=== PATIENT | female | born 1965 | race Caucasian/White ===

== ENCOUNTER 2020-04-07 13:04 | Inpatient (IN) | payer MEDICAID ==
[~2020-04-07] VITALS: Ht 154.9 cm; Wt 97.8 kg
--- NOTE | 2020-04-07 13:29 | NUR ---
PT TO ROOM VIA WHEELCHAIR.
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
--- NOTE | 2020-04-07 14:33 | NUR ---
PT BEING TAKEN TO IMAGING.
[2020-04-07 14:34] LABS: MEAN CORPUSCULAR HEMOGLOBIN 38.2 pg (27.0-34.8); MEAN CORPUSCULAR VOLUME 119.3 fL (80-100); MEAN PLATELET VOLUME 9.2 fL (7.4-10.4); PLATELET COUNT 237 x10^3/uL (130-400); RED BLOOD COUNT 3.42 x10^6/uL (3.82-5.3); RED CELL DISTRIBUTION WIDTH 19.4 % (9.6-15.2)
[2020-04-07 14:46] LABS: ALBUMIN 1.9 g/dL (3.4-5.0); ANION GAP 12 mmol/L (5-15); CALCIUM 8.4 mg/dL (8.5-10.1); CHLORIDE 93 mmol/L (98-107)
[2020-04-07 14:51] LABS: ALANINE AMINOTRANSFERASE 109 U/L (12-78); ALKALINE PHOSPHATASE 324 U/L (45-117); BILIRUBIN,TOTAL 4.3 mg/dL (0.2-1.0); CREATININE 4.96 mg/dL (0.55-1.02); TOTAL PROTEIN 6.9 g/dL (6.4-8.2)
[2020-04-07 15:15] LABS: BASOPHILS # (AUTO) 0.08 x10^3/uL (0-0.1); BASOPHILS % (AUTO) 1 % (0-1); EOSINOPHILS # (AUTO) 0.04 x10^3/uL (0-0.4); EOSINOPHILS % (AUTO) 0 % (1-7); LYMPHOCYTES # (AUTO) 1.12 x10^3/uL (1-3.4); LYMPHOCYTES % (AUTO) 7 % (22-44); MD SCAN; MONOCYTES # (AUTO) 2.09 x10^3/uL (0.2-0.8); MONOCYTES % (AUTO) 13 % (2-9); NEUTROPHILS # (AUTO) 13.45 x10^3/uL (1.8-6.8); NEUTROPHILS % (AUTO) 80 % (42-75)
--- NOTE | 2020-04-07 15:33 | NUR ---
PT BACK FROM IMAGING.
[2020-04-07] MEDS ORDERED: METH40TA3 PO (15:35)
--- NOTE | 2020-04-07 15:35 | NUR ---
PT RESTING ON GUCRISTINE. EDWARDN. UA SENT TO LAB. NO OTHER NEEDS REQUESTED AT THIS TIME. VSS
[2020-04-07 16:05] LABS: MICROSCOPIC INDICATED
[2020-04-07] MEDS ORDERED: CEFTRIAXONE PMX 1GM/50ML 50 ML IV ONE (17:00)
[2020-04-07] MEDS ORDERED: CEFTRIAXONE PMX 1GM/50ML 50 ML ONE (17:11)
--- NOTE | 2020-04-07 17:48 | NUR ---
LATE ENTRY FOR 1635 PT RESTING JENNY DANIEL. NO NEEDS REQUESTED AT THIS TIME.
--- NOTE | 2020-04-07 17:49 | NUR ---
US GUIDED IV IN PROGRESS. PIV ATTEMPTS UNSUCCESSFUL
[2020-04-07] MEDS ORDERED: POTASSIUM CHLORIDE 20 MEQ TAB.ER.PRT PO ONE (18:00)
[2020-04-07] MEDS ORDERED: POTASSIUM CHLORIDE 20 MEQ TAB.ER.PRT ONE (18:16)
--- NOTE | 2020-04-07 18:32 | NUR ---
REPORT TO UGO CARPENTER. ALL QUESTIONS ANSWERED
[2020-04-07 18:56] LABS: INTERNATIONAL NORMALIZED RATIO 1.26 (0.93-1.1)
[2020-04-07] MEDS ORDERED: ONDANSETRON 2MG/ML, 2ML IVPush PRN (19:00)
[2020-04-07] MEDS ORDERED: POLYETHYLENE GLYCOL 17 GM PACKET PO PRN (19:00)
[2020-04-07] MEDS ORDERED: BISACODYL 10 MG SUPP PR PRN (19:00)
[2020-04-07] MEDS ORDERED: DOCUSATE 100 MG CAPSULE PO PRN (19:00)
[2020-04-07 20:04] VITALS: BP 98/62
[2020-04-07] MEDS: ALBUMIN HUMAN 25% 100 ML IV SCH (20:20)
[2020-04-07] MEDS: FUROSEMIDE 20 MG/2 ML IV SCH (23:18)
[2020-04-08] MEDS: ACETAMINOPHEN 325 MG TABLET PO PRN (00:14)
[2020-04-08 00:18] VITALS: BP 94/59
[2020-04-08 06:45] LABS: MEAN CORPUSCULAR HEMOGLOBIN 38.8 pg (27.0-34.8); MEAN CORPUSCULAR HGB CONC 32.7 g/dL (32.4-35.8); MEAN CORPUSCULAR VOLUME 118.8 fL (80-100); MEAN PLATELET VOLUME 9.1 fL (7.4-10.4); PLATELET COUNT 156 x10^3/uL (130-400); RED BLOOD COUNT 3.26 x10^6/uL (3.82-5.3); RED CELL DISTRIBUTION WIDTH 19.4 % (9.6-15.2)
[2020-04-08 06:57] LABS: ALANINE AMINOTRANSFERASE 96 U/L (12-78); ALBUMIN 2.2 g/dL (3.4-5.0); ANION GAP 11 mmol/L (5-15); CALCIUM 8.1 mg/dL (8.5-10.1); CHLORIDE 95 mmol/L (98-107)
[2020-04-08 07:06] LABS: ALKALINE PHOSPHATASE 283 U/L (45-117); BILIRUBIN,TOTAL 4.3 mg/dL (0.2-1.0); CREATININE 4.82 mg/dL (0.55-1.02); TOTAL PROTEIN 6.9 g/dL (6.4-8.2)
[2020-04-08 07:29] LABS: BASOPHILS # (AUTO) 0.07 x10^3/uL (0-0.1); BASOPHILS % (AUTO) 1 % (0-1); EOSINOPHILS # (AUTO) 0.21 x10^3/uL (0-0.4); EOSINOPHILS % (AUTO) 2 % (1-7); LYMPHOCYTES # (AUTO) 1.85 x10^3/uL (1-3.4); LYMPHOCYTES % (AUTO) 16 % (22-44); MD SCAN; MONOCYTES # (AUTO) 1.15 x10^3/uL (0.2-0.8); MONOCYTES % (AUTO) 10 % (2-9); NEUTROPHILS # (AUTO) 8.54 x10^3/uL (1.8-6.8); NEUTROPHILS % (AUTO) 72 % (42-75)
[2020-04-08] MEDS: ALBUMIN HUMAN 25% 100 ML IV SCH ×2 (08:30→16:30)
[2020-04-08] MEDS: METHADONE 40 MG TABLET.SOL PO SCH (08:51)
[2020-04-08 08:57] VITALS: BP 100/66
[2020-04-08] MEDS: FUROSEMIDE 20 MG/2 ML IV SCH ×2 (09:00→18:29)
[2020-04-08 10:16] LABS: FREE T4 (FREE THYROXINE) 1.34 ng/dL (0.76-1.46)
[2020-04-08 14:17] VITALS: BP 93/68
[2020-04-08] MEDS: LIOTHYRONINE 5 MCG TABLET PO SCH (14:35)
[2020-04-08] MEDS: GABAPENTIN 300 MG CAPSULE PO SCH ×2 (16:00→22:53)
[2020-04-08] MEDS ORDERED: FUROSEMIDE 40 MG/4 ML ONE (18:14)
[2020-04-08 18:51] VITALS: BP 106/61
[2020-04-08] MEDS ORDERED: LORazepam 2 MG/ML, 1ML IV PRN ×5 (19:00)
[2020-04-08] MEDS: CEFTRIAXONE PMX 1GM/50ML 50 ML IV SCH (19:43)
[2020-04-09 00:09] VITALS: BP 134/75
[2020-04-09] MEDS: LIOTHYRONINE 5 MCG TABLET PO SCH (05:51)
[2020-04-09 05:52] LABS: MEAN CORPUSCULAR HEMOGLOBIN 39.1 pg (27.0-34.8); MEAN CORPUSCULAR HGB CONC 32.9 g/dL (32.4-35.8); MEAN CORPUSCULAR VOLUME 118.8 fL (80-100); MEAN PLATELET VOLUME 9.5 fL (7.4-10.4); PLATELET COUNT 205 x10^3/uL (130-400); RED CELL DISTRIBUTION WIDTH 20.1 % (9.6-15.2)
[2020-04-09 06:03] LABS: ANION GAP 10 mmol/L (5-15); CALCIUM 8.6 mg/dL (8.5-10.1); CHLORIDE 93 mmol/L (98-107); CREATININE 4.57 mg/dL (0.55-1.02)
[2020-04-09 06:05] LABS: MD YES
[2020-04-09 06:09] LABS: ANISOCYTOSIS 1+; BAND#(MANUAL) 0.13 x10^3/uL; BANDS%(MANUAL) 1 % (0-7); LYMPH#(MANUAL) 2.13 x10^3/uL (1-3.4); LYMPHS% (MANUAL) 16 % (22-44); MONOS#(MANUAL) 0.93 x10^3/uL (0.3-2.7); MONOS% (MANUAL) 7 % (2-9); NRBC % (MANUAL) 1 % (0-1); POLYCHROMASIA 1+; SEG#(MANUAL) 10.11 x10^3/uL (1.8-6.8); SEGS% (MANUAL) 76 % (42-75); TARGET CELLS 1+
[2020-04-09 06:10] LABS: TEAR DROPS 1+
[2020-04-09 06:11] LABS: <PLATELET ESTIMATE> ADEQUATE; <PLT MORPHOLOGY> NORMAL PLT MORPH
[2020-04-09 06:32] VITALS: BP 110/73
[2020-04-09] MEDS ORDERED: FUROSEMIDE 20 MG/2 ML IV SCH (07:30)
[2020-04-09] MEDS ORDERED: LIOTHYRONINE 5 MCG TABLET PO SCH (09:00)
[2020-04-09] MEDS: GABAPENTIN 300 MG CAPSULE PO SCH ×3 (09:00→20:58)
[2020-04-09] MEDS: METHADONE 40 MG TABLET.SOL PO SCH (09:19)
[2020-04-09] MEDS: FUROSEMIDE 20 MG/2 ML IV SCH ×2 (09:21→20:57)
[2020-04-09] MEDS: ALBUMIN HUMAN 25% 100 ML IV SCH (09:34)
[2020-04-09 12:47] VITALS: BP 107/76
[2020-04-09] MEDS: CEFTRIAXONE PMX 1GM/50ML 50 ML IV SCH (18:00)
[2020-04-09 20:08] VITALS: BP 123/84
[2020-04-10 01:58] VITALS: BP 131/86
[2020-04-10 04:54] LABS: MEAN CORPUSCULAR HEMOGLOBIN 38.4 pg (27.0-34.8); MEAN CORPUSCULAR HGB CONC 32.3 g/dL (32.4-35.8); MEAN CORPUSCULAR VOLUME 118.8 fL (80-100); MEAN PLATELET VOLUME 8.8 fL (7.4-10.4); PLATELET COUNT 206 x10^3/uL (130-400); RED BLOOD COUNT 3.32 x10^6/uL (3.82-5.3); RED CELL DISTRIBUTION WIDTH 19.4 % (9.6-15.2)
[2020-04-10 04:58] LABS: ALBUMIN 2.9 g/dL (3.4-5.0); ANION GAP 9 mmol/L (5-15); CALCIUM 8.7 mg/dL (8.5-10.1); CHLORIDE 95 mmol/L (98-107)
[2020-04-10] MEDS: LIOTHYRONINE 5 MCG TABLET PO SCH (05:27)
[2020-04-10 05:53] LABS: BASOPHILS # (AUTO) 0.05 x10^3/uL (0-0.1); BASOPHILS % (AUTO) 0 % (0-1); EOSINOPHILS # (AUTO) 0.08 x10^3/uL (0-0.4); EOSINOPHILS % (AUTO) 1 % (1-7); LYMPHOCYTES # (AUTO) 1.76 x10^3/uL (1-3.4); LYMPHOCYTES % (AUTO) 12 % (22-44); MD SCAN; MONOCYTES # (AUTO) 1.68 x10^3/uL (0.2-0.8); MONOCYTES % (AUTO) 11 % (2-9); NEUTROPHILS # (AUTO) 11.37 x10^3/uL (1.8-6.8); NEUTROPHILS % (AUTO) 76 % (42-75)
[2020-04-10 07:24] VITALS: BP 126/86
[2020-04-10] MEDS: GABAPENTIN 300 MG CAPSULE PO SCH (07:45)
[2020-04-10] MEDS: METHADONE 40 MG TABLET.SOL PO SCH (07:45)
[2020-04-10] MEDS: FUROSEMIDE 20 MG/2 ML IV SCH (09:49)
[2020-04-10] MEDS: POTASSIUM CHLORIDE 20 MEQ in SODIUM CHLORIDE 0.9% 250 ML IV SCH ×2 (11:34→23:55)
[2020-04-10 12:59] VITALS: BP 125/89
[2020-04-10] MEDS ORDERED: LIDOCAINE 1%, 10ML ONE (15:56)
[2020-04-10] MEDS: FUROSEMIDE 80 MG TABLET PO SCH (17:42)
[2020-04-10] MEDS: GABAPENTIN 100 MG CAPSULE PO SCH ×2 (17:43→21:00)
[2020-04-10] MEDS: CEFTRIAXONE PMX 1GM/50ML 50 ML IV SCH (18:03)
[2020-04-10 18:59] VITALS: BP 132/79
[2020-04-10] MEDS: POTASSIUM CHLORIDE 20 MEQ TAB.ER.PRT PO SCH (21:00)
[2020-04-11 00:22] VITALS: BP 111/76
[2020-04-11 07:02] LABS: MEAN CORPUSCULAR HEMOGLOBIN 39.7 pg (27.0-34.8); MEAN CORPUSCULAR HGB CONC 33.6 g/dL (32.4-35.8); MEAN CORPUSCULAR VOLUME 118.1 fL (80-100); MEAN PLATELET VOLUME 9.2 fL (7.4-10.4); PLATELET COUNT 182 x10^3/uL (130-400); RED BLOOD COUNT 3.45 x10^6/uL (3.82-5.3); RED CELL DISTRIBUTION WIDTH 19.8 % (9.6-15.2)
[2020-04-11 07:04] LABS: HEMOGRAM NOTE RECHECKED
[2020-04-11 07:09] LABS: ALBUMIN 2.6 g/dL (3.4-5.0); ANION GAP 8 mmol/L (5-15); CHLORIDE 100 mmol/L (98-107)
[2020-04-11 07:41] LABS: BASOPHILS # (AUTO) 0.06 x10^3/uL (0-0.1); BASOPHILS % (AUTO) 0 % (0-1); EOSINOPHILS # (AUTO) 0.21 x10^3/uL (0-0.4); EOSINOPHILS % (AUTO) 1 % (1-7); LYMPHOCYTES # (AUTO) 1.77 x10^3/uL (1-3.4); LYMPHOCYTES % (AUTO) 9 % (22-44); MD MORPH REVIEW ONLY; MONOCYTES # (AUTO) 1.71 x10^3/uL (0.2-0.8); MONOCYTES % (AUTO) 8 % (2-9); NEUTROPHILS # (AUTO) 16.52 x10^3/uL (1.8-6.8); NEUTROPHILS % (AUTO) 82 % (42-75)
[2020-04-11 07:48] LABS: <PLATELET ESTIMATE> ADEQUATE; <PLT MORPHOLOGY> NORMAL PLT MORPH; ANISOCYTOSIS 1+; POLYCHROMASIA 1+; TARGET CELLS 1+
[2020-04-11] MEDS: LIOTHYRONINE 5 MCG TABLET PO SCH (07:53)
[2020-04-11] MEDS: FUROSEMIDE 80 MG TABLET PO SCH ×2 (07:53→16:08)
[2020-04-11] MEDS: GABAPENTIN 100 MG CAPSULE PO SCH (08:11)
[2020-04-11] MEDS: POTASSIUM CHLORIDE 20 MEQ TAB.ER.PRT PO SCH ×3 (08:11→22:56)
[2020-04-11] MEDS: METHADONE 40 MG TABLET.SOL PO SCH (08:12)
[2020-04-11 08:44] VITALS: BP 119/70
[2020-04-11] MEDS: POTASSIUM CHLORIDE 20 MEQ in SODIUM CHLORIDE 0.9% 250 ML IV SCH ×2 (09:12→21:46)
[2020-04-11] MEDS: LACTULOSE 20 GM/30 ML UDC PO SCH ×3 (11:00→21:46)
[2020-04-11 14:14] VITALS: BP 105/70
[2020-04-11] MEDS: CEFTRIAXONE PMX 1GM/50ML 50 ML IV SCH (17:40)
[2020-04-11 18:45] VITALS: BP 130/82
[2020-04-12 00:51] VITALS: BP 120/87
[2020-04-12] MEDS: LIOTHYRONINE 5 MCG TABLET PO SCH (06:25)
[2020-04-12] MEDS: LACTULOSE 20 GM/30 ML UDC PO SCH ×4 (06:25→21:00)
[2020-04-12 06:45] VITALS: BP 112/73
[2020-04-12 08:18] LABS: MEAN CORPUSCULAR HEMOGLOBIN 38.6 pg (27.0-34.8); MEAN CORPUSCULAR HGB CONC 32.1 g/dL (32.4-35.8); MEAN CORPUSCULAR VOLUME 120.4 fL (80-100); MEAN PLATELET VOLUME 8.7 fL (7.4-10.4); PLATELET COUNT 193 x10^3/uL (130-400); RED BLOOD COUNT 3.18 x10^6/uL (3.82-5.3); RED CELL DISTRIBUTION WIDTH 19.5 % (9.6-15.2)
[2020-04-12 08:28] LABS: ALBUMIN 2.4 g/dL (3.4-5.0); ANION GAP 6 mmol/L (5-15); CALCIUM 9.2 mg/dL (8.5-10.1); CHLORIDE 106 mmol/L (98-107)
[2020-04-12 08:32] LABS: ALANINE AMINOTRANSFERASE 62 U/L (12-78); ALKALINE PHOSPHATASE 204 U/L (45-117); BILIRUBIN,TOTAL 4.7 mg/dL (0.2-1.0); CREATININE 2.31 mg/dL (0.55-1.02); TOTAL PROTEIN 6.7 g/dL (6.4-8.2)
[2020-04-12] MEDS: POTASSIUM CHLORIDE 20 MEQ TAB.ER.PRT PO SCH ×2 (08:36→21:03)
[2020-04-12] MEDS: METHADONE 40 MG TABLET.SOL PO SCH (08:36)
[2020-04-12] MEDS: FUROSEMIDE 80 MG TABLET PO SCH ×2 (08:36→17:24)
[2020-04-12 08:53] LABS: MD YES
[2020-04-12 08:55] LABS: ANISOCYTOSIS 1+; BAND#(MANUAL) 0.33 x10^3/uL; BANDS%(MANUAL) 2 % (0-7); BASOS#(MANUAL) 0.16 x10^3/uL (0-0.1); BASOS% (MANUAL) 1 % (0-1); LYMPH#(MANUAL) 0.49 x10^3/uL (1-3.4); LYMPHS% (MANUAL) 3 % (22-44); METAMYELOCYTES# (MANUAL) 0.33 x10^3/uL (0-0); METAMYELOCYTES% (MANUAL) 2 % (0-1); MONOS% (MANUAL) 11 % (2-9); SEG#(MANUAL) 13.28 x10^3/uL (1.8-6.8); SEGS% (MANUAL) 81 % (42-75)
[2020-04-12 08:56] LABS: <PLATELET ESTIMATE> ADEQUATE; <PLT MORPHOLOGY> NORMAL PLT MORPH; POLYCHROMASIA 1+; TARGET CELLS 1+
[2020-04-12 13:00] VITALS: BP 95/66
[2020-04-12] MEDS: CEFTRIAXONE PMX 1GM/50ML 50 ML IV SCH (18:21)
[2020-04-12 19:09] VITALS: BP 123/79
[2020-04-13 01:41] VITALS: BP 121/59
[2020-04-13] MEDS: LIOTHYRONINE 5 MCG TABLET PO SCH (06:03)
[2020-04-13 06:06] LABS: MEAN CORPUSCULAR HEMOGLOBIN 39.2 pg (27.0-34.8); MEAN CORPUSCULAR HGB CONC 32.7 g/dL (32.4-35.8); MEAN CORPUSCULAR VOLUME 119.9 fL (80-100); MEAN PLATELET VOLUME 9.1 fL (7.4-10.4); PLATELET COUNT 205 x10^3/uL (130-400); RED BLOOD COUNT 3.08 x10^6/uL (3.82-5.3); RED CELL DISTRIBUTION WIDTH 18.7 % (9.6-15.2)
[2020-04-13] MEDS: LACTULOSE 20 GM/30 ML UDC PO SCH ×4 (06:06→23:19)
[2020-04-13 06:14] LABS: ALANINE AMINOTRANSFERASE 64 U/L (12-78); ALBUMIN 2.3 g/dL (3.4-5.0); ANION GAP 7 mmol/L (5-15); CALCIUM 8.8 mg/dL (8.5-10.1); CHLORIDE 104 mmol/L (98-107); CREATININE 2.06 mg/dL (0.55-1.02)
[2020-04-13 06:16] LABS: ALKALINE PHOSPHATASE 192 U/L (45-117); TOTAL PROTEIN 6.6 g/dL (6.4-8.2)
[2020-04-13 06:34] LABS: MD YES
[2020-04-13 06:36] LABS: BAND#(MANUAL) 0.58 x10^3/uL; BANDS%(MANUAL) 4 % (0-7); LYMPH#(MANUAL) 1.17 x10^3/uL (1-3.4); LYMPHS% (MANUAL) 8 % (22-44); METAMYELOCYTES# (MANUAL) 0.15 x10^3/uL (0-0); METAMYELOCYTES% (MANUAL) 1 % (0-1); MONOS#(MANUAL) 1.17 x10^3/uL (0.3-2.7); MONOS% (MANUAL) 8 % (2-9); SEG#(MANUAL) 11.53 x10^3/uL (1.8-6.8); SEGS% (MANUAL) 79 % (42-75)
[2020-04-13 06:37] LABS: <PLATELET ESTIMATE> ADEQUATE; <PLT MORPHOLOGY> NORMAL PLT MORPH; ANISOCYTOSIS 1+; TARGET CELLS 1+
[2020-04-13 07:28] VITALS: BP 106/64
[2020-04-13] MEDS: METHADONE 40 MG TABLET.SOL PO SCH (09:00)
[2020-04-13] MEDS: FUROSEMIDE 80 MG TABLET PO SCH (09:32)
[2020-04-13] MEDS: POTASSIUM CHLORIDE 20 MEQ TAB.ER.PRT PO SCH (09:32)
[2020-04-13] MEDS: RIFAXIMIN 550 MG TABLET PO SCH (14:07)
[2020-04-13 14:13] VITALS: BP 115/78
[2020-04-13] MEDS: ALBUMIN HUMAN 25% 100 ML IV SCH (16:48)
[2020-04-13 20:17] VITALS: BP 105/73
[2020-04-14 01:00] VITALS: BP 123/74
[2020-04-14] MEDS: ALBUMIN HUMAN 25% 100 ML IV SCH ×2 (02:26→11:29)
[2020-04-14] MEDS: RIFAXIMIN 550 MG TABLET PO SCH ×3 (02:28→21:07)
[2020-04-14] MEDS: CEFTRIAXONE PMX 1GM/50ML 50 ML IV SCH (03:22)
[2020-04-14 06:16] VITALS: BP 111/70
[2020-04-14] MEDS: LIOTHYRONINE 5 MCG TABLET PO SCH (06:17)
[2020-04-14] MEDS: LACTULOSE 20 GM/30 ML UDC PO SCH ×4 (06:17→20:58)
[2020-04-14] MEDS: ACETAMINOPHEN 325 MG TABLET PO PRN ×2 (08:31→18:08)
[2020-04-14] MEDS: METHADONE 40 MG TABLET.SOL PO SCH (08:31)
[2020-04-14 08:59] LABS: MEAN CORPUSCULAR HEMOGLOBIN 38.9 pg (27.0-34.8); MEAN CORPUSCULAR HGB CONC 32.2 g/dL (32.4-35.8); MEAN PLATELET VOLUME 8.9 fL (7.4-10.4); PLATELET COUNT 194 x10^3/uL (130-400); RED BLOOD COUNT 3.02 x10^6/uL (3.82-5.3); RED CELL DISTRIBUTION WIDTH 18.8 % (9.6-15.2)
[2020-04-14] MEDS ORDERED: OXYcodone IR 5MG TABLET PO PRN (09:00)
[2020-04-14 09:09] LABS: ALBUMIN 2.8 g/dL (3.4-5.0); ANION GAP 4 mmol/L (5-15); CALCIUM 9.4 mg/dL (8.5-10.1); CHLORIDE 103 mmol/L (98-107)
[2020-04-14 09:13] LABS: ALANINE AMINOTRANSFERASE 69 U/L (12-78); ALKALINE PHOSPHATASE 191 U/L (45-117); BILIRUBIN,TOTAL 4.6 mg/dL (0.2-1.0); CREATININE 1.72 mg/dL (0.55-1.02)
[2020-04-14 09:14] LABS: MD YES
[2020-04-14 09:16] LABS: BAND#(MANUAL) 0.11 x10^3/uL; BANDS%(MANUAL) 1 % (0-7); BASOS#(MANUAL) 0.22 x10^3/uL (0-0.1); BASOS% (MANUAL) 2 % (0-1); EOS#(MANUAL) 0.22 x10^3/uL (0.0-0.4); EOS% (MANUAL) 2 % (1-7); LYMPH#(MANUAL) 1.87 x10^3/uL (1-3.4); LYMPHS% (MANUAL) 17 % (22-44); MONOS#(MANUAL) 0.55 x10^3/uL (0.3-2.7); MONOS% (MANUAL) 5 % (2-9); MYELOCYTES# (MANUAL) 0.22 x10^3/uL (0-0); MYELOCYTES% (MANUAL) 2 % (0-0); NRBC % (MANUAL) 1 % (0-1); SEG#(MANUAL) 7.81 x10^3/uL (1.8-6.8); SEGS% (MANUAL) 71 % (42-75)
[2020-04-14 09:17] LABS: ANISOCYTOSIS 1+; POLYCHROMASIA 1+; TARGET CELLS 1+
[2020-04-14 09:18] LABS: <PLATELET ESTIMATE> ADEQUATE; <PLT MORPHOLOGY> NORMAL PLT MORPH
[2020-04-14] MEDS: HEPARIN 5,000 UNITS/ML, 1ML SQ SCH (11:29)
[2020-04-14 13:40] VITALS: BP 101/61
[2020-04-14 18:54] VITALS: BP 145/87
[2020-04-14 19:09] VITALS: BP 105/72
[2020-04-15] MEDS: HEPARIN 5,000 UNITS/ML, 1ML SQ SCH ×3 (00:07→22:09)
[2020-04-15 02:12] VITALS: BP 107/68
[2020-04-15] MEDS: CEFTRIAXONE PMX 1GM/50ML 50 ML IV SCH (04:46)
[2020-04-15] MEDS: ACETAMINOPHEN 325 MG TABLET PO PRN ×3 (04:48→22:09)
[2020-04-15 05:21] LABS: MEAN CORPUSCULAR HEMOGLOBIN 39.1 pg (27.0-34.8); MEAN CORPUSCULAR HGB CONC 32.8 g/dL (32.4-35.8); MEAN CORPUSCULAR VOLUME 119.2 fL (80-100); MEAN PLATELET VOLUME 9.5 fL (7.4-10.4); PLATELET COUNT 170 x10^3/uL (130-400); RED BLOOD COUNT 2.82 x10^6/uL (3.82-5.3); RED CELL DISTRIBUTION WIDTH 18.3 % (9.6-15.2)
[2020-04-15 05:24] LABS: CHLORIDE 104 mmol/L (98-107)
[2020-04-15 05:32] LABS: ALANINE AMINOTRANSFERASE 62 U/L (12-78); ALBUMIN 2.4 g/dL (3.4-5.0); ALKALINE PHOSPHATASE 168 U/L (45-117); ANION GAP 8 mmol/L (5-15); BILIRUBIN,TOTAL 3.6 mg/dL (0.2-1.0); CALCIUM 8.3 mg/dL (8.5-10.1); TOTAL PROTEIN 6.2 g/dL (6.4-8.2)
[2020-04-15] MEDS: LACTULOSE 20 GM/30 ML UDC PO SCH (06:15)
[2020-04-15] MEDS: LIOTHYRONINE 5 MCG TABLET PO SCH (06:15)
[2020-04-15 06:16] LABS: MD YES
[2020-04-15 06:19] LABS: ANISOCYTOSIS 1+; BAND#(MANUAL) 1.06 x10^3/uL; BANDS%(MANUAL) 9 % (0-7); BASOS#(MANUAL) 0.24 x10^3/uL (0-0.1); BASOS% (MANUAL) 2 % (0-1); EOS#(MANUAL) 0.12 x10^3/uL (0.0-0.4); EOS% (MANUAL) 1 % (1-7); LYMPH#(MANUAL) 1.77 x10^3/uL (1-3.4); LYMPHS% (MANUAL) 15 % (22-44); METAMYELOCYTES# (MANUAL) 0.12 x10^3/uL (0-0); METAMYELOCYTES% (MANUAL) 1 % (0-1); MONOS#(MANUAL) 1.65 x10^3/uL (0.3-2.7); MONOS% (MANUAL) 14 % (2-9); SEG#(MANUAL) 6.84 x10^3/uL (1.8-6.8); SEGS% (MANUAL) 58 % (42-75)
[2020-04-15 06:20] LABS: <PLATELET ESTIMATE> ADEQUATE; <PLT MORPHOLOGY> NORMAL PLT MORPH; TARGET CELLS 1+
[2020-04-15 07:50] VITALS: BP 101/64
[2020-04-15] MEDS ORDERED: LACTULOSE 20 GM/30 ML UDC PO PRN (08:00)
[2020-04-15] MEDS: METHADONE 40 MG TABLET.SOL PO SCH (09:00)
[2020-04-15] MEDS: RIFAXIMIN 550 MG TABLET PO SCH ×2 (09:56→22:09)
[2020-04-15 13:32] VITALS: BP 106/65
[2020-04-15 19:29] VITALS: BP 108/65
[2020-04-16 01:14] VITALS: BP 103/69
[2020-04-16 05:41] VITALS: BP 110/66
[2020-04-16] MEDS: LIOTHYRONINE 5 MCG TABLET PO SCH (05:44)
[2020-04-16 07:19] LABS: MEAN CORPUSCULAR HEMOGLOBIN 38.6 pg (27.0-34.8); MEAN CORPUSCULAR HGB CONC 31.9 g/dL (32.4-35.8); MEAN PLATELET VOLUME 8.6 fL (7.4-10.4); PLATELET COUNT 186 x10^3/uL (130-400); RED BLOOD COUNT 3.07 x10^6/uL (3.82-5.3); RED CELL DISTRIBUTION WIDTH 18.6 % (9.6-15.2)
[2020-04-16 07:31] LABS: ALBUMIN 2.6 g/dL (3.4-5.0); ANION GAP 6 mmol/L (5-15); CALCIUM 8.7 mg/dL (8.5-10.1); CHLORIDE 104 mmol/L (98-107)
[2020-04-16 07:35] LABS: BASOPHILS # (AUTO) 0.09 x10^3/uL (0-0.1); BASOPHILS % (AUTO) 1 % (0-1); EOSINOPHILS # (AUTO) 0.21 x10^3/uL (0-0.4); EOSINOPHILS % (AUTO) 2 % (1-7); LYMPHOCYTES # (AUTO) 1.87 x10^3/uL (1-3.4); LYMPHOCYTES % (AUTO) 17 % (22-44); MD SCAN; MONOCYTES # (AUTO) 0.86 x10^3/uL (0.2-0.8); MONOCYTES % (AUTO) 8 % (2-9); NEUTROPHILS # (AUTO) 7.82 x10^3/uL (1.8-6.8); NEUTROPHILS % (AUTO) 72 % (42-75)
[2020-04-16 07:36] LABS: ALANINE AMINOTRANSFERASE 64 U/L (12-78); ALKALINE PHOSPHATASE 180 U/L (45-117); BILIRUBIN,TOTAL 3.2 mg/dL (0.2-1.0); CREATININE 0.95 mg/dL (0.55-1.02); TOTAL PROTEIN 6.4 g/dL (6.4-8.2)
[2020-04-16 08:22] VITALS: BP 104/69
[2020-04-16] MEDS: RIFAXIMIN 550 MG TABLET PO SCH ×2 (08:56→23:16)
[2020-04-16] MEDS: METHADONE 40 MG TABLET.SOL PO SCH (08:57)
[2020-04-16] MEDS: HEPARIN 5,000 UNITS/ML, 1ML SQ SCH ×2 (11:50→23:15)
[2020-04-16 15:02] VITALS: BP 108/67
[2020-04-16] MEDS: POTASSIUM CHLORIDE 20 MEQ TAB.ER.PRT PO SCH (16:31)
[2020-04-16 21:01] VITALS: BP 111/70
[2020-04-16] MEDS: SPIRONOLACTONE 25 MG TABLET PO SCH (23:16)
[2020-04-17 01:01] VITALS: BP 104/64
[2020-04-17 05:29] LABS: ANION GAP 6 mmol/L (5-15); CALCIUM 8.1 mg/dL (8.5-10.1); CHLORIDE 105 mmol/L (98-107)
[2020-04-17 05:30] LABS: CREATININE 0.89 mg/dL (0.55-1.02)
[2020-04-17] MEDS: LIOTHYRONINE 5 MCG TABLET PO SCH (06:02)
[2020-04-17 08:15] VITALS: BP 120/60
[2020-04-17] MEDS: SPIRONOLACTONE 25 MG TABLET PO SCH ×2 (09:05→20:16)
[2020-04-17] MEDS: POTASSIUM CHLORIDE 20 MEQ TAB.ER.PRT PO SCH ×2 (09:05→17:21)
[2020-04-17] MEDS: FUROSEMIDE 20 MG TABLET PO SCH (09:05)
[2020-04-17] MEDS: METHADONE 40 MG TABLET.SOL PO SCH (09:05)
[2020-04-17] MEDS: RIFAXIMIN 550 MG TABLET PO SCH ×2 (09:05→20:16)
[2020-04-17] MEDS: HEPARIN 5,000 UNITS/ML, 1ML SQ SCH (13:21)
[2020-04-17 13:39] VITALS: BP 120/78
[2020-04-17 19:02] VITALS: BP 104/63
[2020-04-18 00:10] VITALS: BP 110/71
[2020-04-18 05:00] LABS: ALBUMIN 2.4 g/dL (3.4-5.0); ANION GAP 4 mmol/L (5-15); CALCIUM 8.5 mg/dL (8.5-10.1); CHLORIDE 108 mmol/L (98-107)
[2020-04-18 05:03] LABS: ALANINE AMINOTRANSFERASE 56 U/L (12-78); ALKALINE PHOSPHATASE 166 U/L (45-117); BILIRUBIN,TOTAL 2.9 mg/dL (0.2-1.0); CREATININE 0.84 mg/dL (0.55-1.02); TOTAL PROTEIN 6.2 g/dL (6.4-8.2)
[2020-04-18] MEDS: LIOTHYRONINE 5 MCG TABLET PO SCH (05:24)
[2020-04-18 07:12] VITALS: BP 107/66
[2020-04-18 08:14] VITALS: BP 107/66
[2020-04-18] MEDS: RIFAXIMIN 550 MG TABLET PO SCH ×2 (08:47→20:24)
[2020-04-18] MEDS: METHADONE 40 MG TABLET.SOL PO SCH (08:47)
[2020-04-18] MEDS: POTASSIUM CHLORIDE 20 MEQ TAB.ER.PRT PO SCH ×2 (08:47→17:03)
[2020-04-18] MEDS: SPIRONOLACTONE 25 MG TABLET PO SCH ×2 (08:48→20:24)
[2020-04-18] MEDS: ACETAMINOPHEN 325 MG TABLET PO PRN (08:48)
[2020-04-18] MEDS: FUROSEMIDE 20 MG TABLET PO SCH (08:49)
[2020-04-18 12:48] VITALS: BP 108/61
[2020-04-18] MEDS: HEPARIN 5,000 UNITS/ML, 1ML SQ SCH ×2 (12:51)
[2020-04-18 19:34] VITALS: BP 113/69
[2020-04-19 00:10] VITALS: BP 111/67
[2020-04-19] MEDS: HEPARIN 5,000 UNITS/ML, 1ML SQ SCH ×2 (00:40→12:00)
[2020-04-19] MEDS: ACETAMINOPHEN 325 MG TABLET PO PRN (00:42)
[2020-04-19 05:59] LABS: ANION GAP 5 mmol/L (5-15); CALCIUM 8.2 mg/dL (8.5-10.1); CHLORIDE 106 mmol/L (98-107)
[2020-04-19] MEDS: LIOTHYRONINE 5 MCG TABLET PO SCH (06:25)
[2020-04-19 07:30] VITALS: BP 104/66
[2020-04-19] MEDS ORDERED: LACT20SO13 PO (07:39)
[2020-04-19] MEDS ORDERED: SPIR25TA PO (07:39)
[2020-04-19] MEDS ORDERED: FURO20TA3 PO (07:39)
[2020-04-19] MEDS: POTASSIUM CHLORIDE 20 MEQ TAB.ER.PRT PO SCH (08:26)
[2020-04-19] MEDS: RIFAXIMIN 550 MG TABLET PO SCH (10:18)
[2020-04-19] MEDS: FUROSEMIDE 20 MG TABLET PO SCH (10:18)
[2020-04-19] MEDS: SPIRONOLACTONE 25 MG TABLET PO SCH (10:18)
[2020-04-19] MEDS: METHADONE 40 MG TABLET.SOL PO SCH (10:19)
[2020-04-19 13:24] VITALS: BP 111/75
== END 2020-04-19 14:15 | disposition home or self-care (01) | DRG 280 ==
LOC: ED 14:04 → EDIP 17:19 → 3N 19:25 → DCLOUNGE 04-19 14:02
PROVIDERS: ADMIT Hospitalist; ATTEND Family Medicine
PROC: 0W9G3ZZ Drainage of Peritoneal Cavity, Percutaneous Approach (ICD-10-PCS; principal; 2020-04-10)
DX: K70.31 Alcoholic cirrhosis of liver with ascites (principal); D68.9 Coagulation defect, unspecified; N17.0 Acute kidney failure with tubular necrosis; D75.89 Other specified diseases of blood and blood-forming organs; E44.1 Mild protein-calorie malnutrition; E66.9 Obesity, unspecified; E87.1 Hypo-osmolality and hyponatremia; E87.5 Hyperkalemia; E87.6 Hypokalemia; F10.239 Alcohol dependence with withdrawal, unspecified; F11.20 Opioid dependence, uncomplicated; F41.9 Anxiety disorder, unspecified; G25.3 Myoclonus; G89.29 Other chronic pain; G93.41 Metabolic encephalopathy; J98.11 Atelectasis; K72.90 Hepatic failure, unspecified without coma; K76.0 Fatty (change of) liver, not elsewhere classified; L03.90 Cellulitis, unspecified; F11.90 Opioid use, unspecified, uncomplicated; N83.209 Unspecified ovarian cyst, unspecified side; N39.0 Urinary tract infection, site not specified; Z79.891 Long term (current) use of opiate analgesic; Z79.899 Other long term (current) drug therapy; Z68.41 Body mass index [BMI] 40.0-44.9, adult; Z80.0 Family history of malignant neoplasm of digestive organs; Z80.1 Family history of malignant neoplasm of trachea, bronchus and lung; Z88.1 Allergy status to other antibiotic agents; D72.829 Elevated white blood cell count, unspecified
CPT/HCPCS: 36415; 49083; 70450; 71045; 74176; 76700; 76830; 80048; 80053; 80069; 80074; 81001; 82105; 82140; 82607; 82945; 83615; 83690; 83735; 83880; 84100; 84132; 84157; 84439; 84443; 84481; 85025; 85610; 87015; 87070; 87075; 87086; 87102; 87116; 87205; 87206; 89051; 93306; 93970; 96374; 96375; 99285; G0378; J0696; J1644; J2405; J3480; P9047; J1940; J2060; J7050

== ENCOUNTER 2020-06-20 11:58 | Inpatient (IN) | payer MEDICAID ==
[~2020-06-20] VITALS: Ht 170.2 cm; Wt 72.0 kg
[~2020-06-20 11:58] MED LIST: FURO20TA3 PO; LACT20SO13 PO; METH40TA3 PO; SPIR25TA PO
--- NOTE | 2020-06-20 12:19 | NUR ---
THIS IS A 55 YO F BIB EMS FROM [facility] IN WHICH SHE LIVES. PER EMS, PTS FAMILY REPORTS ALTERED MENTATION X24 HOURS. FAMILY REPORTED HX OF KIDNEY FAILURE AND CIRRHOSIS FOR WHICH SHE HAD A RECENT ADMIT FOR. PT IS ONLY ORIENTED TO SELF. WHEN ASKED QUESTIONS PT RESPONDS "STANLEY". PT JAUNDICED. PT RESP EVEN AND UNLABORED, NADN. PT RESTING ON GURNEY W/ CALL LIGHT IN REACH AND SIDE RAILS UPX2. CONNECTED TO ALL MONITORING, SITTER REQUESTED FROM WIRE MILL OPERATOR. 5ML DARK ABDIRASHID URINE SPECIMEN OBTAINED BY STRAIGHT CATH AND WALKED TO LAB. LAB IN ROOM.
[2020-06-20 12:27] LABS: AMPHETAMINE SCREEN, URINE Positive (Negative); BARBITURATE SCREEN, URINE Negative (Negative); BENZODIAZEPINE SCREEN, URINE Negative (Negative); CANNABINOID SCREEN, URINE Negative (Negative); COCAINE SCREEN, URINE Negative (Negative); METHADONE SCREEN, URINE Positive (Negative); OPIATE SCREEN, URINE Negative (Negative)
--- NOTE | 2020-06-20 12:27 | NUR ---
US IV STARTED BY PETR ARIZMENDI W/O INCIDENT. LABS DRAWN AND GIVEN TO SECRETARY OFFICE CLERK.
[2020-06-20] MEDS ORDERED: SODIUM CHLORIDE FLUSH 10ML SYR IVF ONE (12:30)
--- NOTE | 2020-06-20 12:36 | NUR ---
RAD IN ROOM.
[2020-06-20 12:42] LABS: MEAN CORPUSCULAR HEMOGLOBIN 36.5 pg (27.0-34.8); MEAN CORPUSCULAR HGB CONC 33.6 g/dL (32.4-35.8); MEAN PLATELET VOLUME 8.2 fL (7.4-10.4); PLATELET COUNT 266 x10^3/uL (130-400); RED BLOOD COUNT 3.35 x10^6/uL (3.82-5.3); RED CELL DISTRIBUTION WIDTH 15.6 % (9.6-15.2)
--- NOTE | 2020-06-20 12:50 | NUR ---
TELEPHONE CALL FROM PTS SAMIRA PATRICK [phone]. STATES PT HAS BEEN ALTERED FOR 1-2 DAYS. BASELINE A&OX4. HX OF KIDNEY AND LIVER FAILURE. WILL BE IN TO SEE PT SOON.
[2020-06-20 12:51] LABS: INTERNATIONAL NORMALIZED RATIO 1.84 (0.93-1.1); PROTHROMBIN TIME 19.4 Seconds (9.6-11.5)
[2020-06-20 12:52] LABS: ALANINE AMINOTRANSFERASE 47 U/L (12-78); ALBUMIN 2.1 g/dL (3.4-5.0); ANION GAP 12 mmol/L (5-15); CALCIUM 8.9 mg/dL (8.5-10.1); CHLORIDE 85 mmol/L (98-107); CREATININE 2.03 mg/dL (0.55-1.02)
[2020-06-20 12:54] LABS: ALKALINE PHOSPHATASE 225 U/L (45-117); BILIRUBIN,TOTAL 11.1 mg/dL (0.2-1.0)
--- NOTE | 2020-06-20 12:58 | NUR ---
AT BEDSIDE FOR EVAL.
[2020-06-20 13:04] LABS: MD YES
--- NOTE | 2020-06-20 13:04 | NUR ---
TELEPHONE CALL RECEIVED FROM LAB STATING THAT UA RESULTS MAY BE CHANGING DUE TO COLOR INTERFERENCE.
[2020-06-20 13:05] LABS: MICROSCOPIC INDICATED
[2020-06-20 13:05] LABS: ANISOCYTOSIS 2+; BAND#(MANUAL) 0.35 x10^3/uL; BANDS%(MANUAL) 2 % (0-7); LYMPH#(MANUAL) 1.73 x10^3/uL (1-3.4); LYMPHS% (MANUAL) 10 % (22-44); MONOS#(MANUAL) 1.21 x10^3/uL (0.3-2.7); MONOS% (MANUAL) 7 % (2-9); POLYCHROMASIA 1+; SEG#(MANUAL) 14.01 x10^3/uL (1.8-6.8); SEGS% (MANUAL) 81 % (42-75)
[2020-06-20 13:06] LABS: <PLATELET ESTIMATE> ADEQUATE; <PLT MORPHOLOGY> NORMAL PLT MORPH; OVALOCYTES 1+; TARGET CELLS 1+
[2020-06-20] MEDS ORDERED: LIDOCAINE 1%, 10ML ONE ×2 (13:20→17:12)
--- NOTE | 2020-06-20 13:24 | NUR ---
LAB IN ROOM.
--- NOTE | 2020-06-20 13:26 | NUR ---
PT RESTING ON GURNEY W/ SIDE RAILS UPX2, SITTER AT BEDSIDE, VSS, NADN. LAB IN ROOM. AWAITING PARACENTEISIS.
[2020-06-20] MEDS: LACTULOSE 3.3 GM/5 ML ORAL.SOL RC ONE ×2 (13:30→21:38)
[2020-06-20] MEDS ORDERED: CEFTRIAXONE PMX 1GM/50ML 50 ML IV ONE ×2 (13:30→15:00)
[2020-06-20] MEDS ORDERED: POTASSIUM CHLORIDE 40 MEQ in SODIUM CHLORIDE 0.9% 500 ML IV ONE (13:30)
[2020-06-20] MEDS ORDERED: CEFTRIAXONE PMX 1GM/50ML 50 ML ONE (13:32)
--- NOTE | 2020-06-20 13:35 | NUR ---
MED MOE FROM PHARMACY.
--- NOTE | 2020-06-20 13:51 | NUR ---
PER MERISSA LAROSE, HOLD ABX TIL AFTER PARACENTESIS.
[2020-06-20] MEDS ORDERED: LABETALOL 5MG/ML, 20ML IVPush PRN (14:30)
[2020-06-20] MEDS ORDERED: ONDANSETRON 2MG/ML, 2ML IVPush PRN (14:30)
[2020-06-20] MEDS ORDERED: ONDANSETRON ODT 4 MG PO PRN (14:30)
--- NOTE | 2020-06-20 14:36 | NUR ---
ATTEMPTED SWALLOW EVAL. PT DROWSY AND UNABLE TO FOLLOW DIRECTIONS.
--- NOTE | 2020-06-20 14:37 | NUR ---
HOLDING OFF ON LACTULOSE ENEMA TIL AFTER IR.
--- NOTE | 2020-06-20 14:39 | NUR ---
ATTEMPT TO CALL REPORT, RN UNAVAILABLE.
--- NOTE | 2020-06-20 14:57 | NUR ---
PER ADMITTING , NOT GOING SEPSIS ROUTE.
--- NOTE | 2020-06-20 14:57 | NUR ---
PER ADMITTING , OK TO HANG ABX BEFORE PARACENTESIS. WOULD LIKE 2GM TO BE GIVEN.
--- NOTE | 2020-06-20 14:59 | NUR ---
POTASSIUM AND ROCEPHIN IV COMPATABILITY CONFIRMED THROUGH [facility].
[2020-06-20 15:10] VITALS: BP 98/58
[2020-06-20] MEDS ORDERED: LACTULOSE 20 GM/30 ML UDC PO SCH (16:00)
[2020-06-20] MEDS ORDERED: LORazepam 2 MG/ML, 1ML IV PRN ×5 (16:00)
[2020-06-20] MEDS ORDERED: LORazepam 1MG TABLET PO PRN ×3 (16:00)
[2020-06-20] MEDS: RIFAXIMIN 200 MG TABLET PO SCH ×2 (16:00→21:00)
[2020-06-20] MEDS ORDERED: LORazepam 0.5MG TABLET PO PRN (16:00)
[2020-06-20 17:07] VITALS: BP 98/58
[2020-06-20 18:25] LABS: ANION GAP 10 mmol/L (5-15); CALCIUM 8.8 mg/dL (8.5-10.1); CHLORIDE 88 mmol/L (98-107); CREATININE 2.12 mg/dL (0.55-1.02)
[2020-06-20] MEDS ORDERED: LACTULOSE 20 GM/30 ML UDC ONE (18:28)
[2020-06-20] MEDS: NS + 20MEQ KCL 1,000 ML IV SCH (18:40)
[2020-06-20 19:31] VITALS: BP 113/76
[2020-06-20] MEDS ORDERED: LACTULOSE 3.3 GM/5 ML ORAL.SOL RC ONE (22:30)
[2020-06-21 01:00] VITALS: BP 131/86
[2020-06-21 02:19] LABS: CLOSTRIDIUM DIFFICILE ANTIGEN POSITIVE
[2020-06-21 02:20] LABS: CLOSTRIDIUM DIFFICILE TOXIN NEGATIVE (Negative)
[2020-06-21] MEDS: NS + 20MEQ KCL 1,000 ML IV SCH ×2 (03:53→13:58)
[2020-06-21 06:05] LABS: BASOPHILS % (AUTO) 0 % (0-1); EOSINOPHILS % (AUTO) 0 % (1-7); LYMPHOCYTES % (AUTO) 11 % (22-44); MEAN CORPUSCULAR HEMOGLOBIN 36.8 pg (27.0-34.8); MEAN CORPUSCULAR HGB CONC 33.7 g/dL (32.4-35.8); MEAN PLATELET VOLUME 8.1 fL (7.4-10.4); MONOCYTES % (AUTO) 14 % (2-9); NEUTROPHILS % (AUTO) 75 % (42-75); PLATELET COUNT 225 x10^3/uL (130-400); RED BLOOD COUNT 3.54 x10^6/uL (3.82-5.3); RED CELL DISTRIBUTION WIDTH 15.5 % (9.6-15.2)
[2020-06-21 06:12] LABS: ANION GAP 16 mmol/L (5-15); CALCIUM 8.8 mg/dL (8.5-10.1); CHLORIDE 96 mmol/L (98-107)
[2020-06-21 06:16] LABS: ALANINE AMINOTRANSFERASE 51 U/L (12-78); ALKALINE PHOSPHATASE 217 U/L (45-117); BILIRUBIN,TOTAL 9.9 mg/dL (0.2-1.0); CREATININE 2.02 mg/dL (0.55-1.02); TOTAL PROTEIN 6.7 g/dL (6.4-8.2)
[2020-06-21 06:48] LABS: MD SCAN
[2020-06-21 07:47] VITALS: BP 109/70
[2020-06-21] MEDS: methylPREDNISolone SOD SUCC 125 MG/2 ML IVPush SCH (08:05)
[2020-06-21] MEDS: PANTOPRAZOLE 40 MG IV IVPush SCH (08:05)
[2020-06-21] MEDS: RIFAXIMIN 200 MG TABLET PO SCH ×3 (08:05→21:41)
[2020-06-21 12:19] VITALS: BP 106/69
[2020-06-21] MEDS: CEFTRIAXONE PMX 2GM/50ML 50 ML IVPB SCH (15:41)
[2020-06-21 19:55] VITALS: BP 112/71
[2020-06-22] MEDS: NS + 20MEQ KCL 1,000 ML IV SCH (00:40)
[2020-06-22 00:42] VITALS: BP 116/77
[2020-06-22 04:59] LABS: MEAN CORPUSCULAR HEMOGLOBIN 36.2 pg (27.0-34.8); MEAN CORPUSCULAR HGB CONC 32.9 g/dL (32.4-35.8); PLATELET COUNT 251 x10^3/uL (130-400); RED BLOOD COUNT 3.03 x10^6/uL (3.82-5.3)
[2020-06-22 05:09] LABS: INTERNATIONAL NORMALIZED RATIO 1.87 (0.93-1.1); PROTHROMBIN TIME 19.7 Seconds (9.6-11.5)
[2020-06-22 05:15] LABS: ALBUMIN 1.9 g/dL (3.4-5.0); ANION GAP 10 mmol/L (5-15); CALCIUM 8.3 mg/dL (8.5-10.1); CHLORIDE 99 mmol/L (98-107)
[2020-06-22 05:21] LABS: ALANINE AMINOTRANSFERASE 55 U/L (12-78); ALKALINE PHOSPHATASE 199 U/L (45-117); BILIRUBIN,TOTAL 6.6 mg/dL (0.2-1.0); CREATININE 1.57 mg/dL (0.55-1.02); TOTAL PROTEIN 6.2 g/dL (6.4-8.2)
[2020-06-22 05:43] LABS: MD YES
[2020-06-22 05:46] LABS: LYMPH#(MANUAL) 2.19 x10^3/uL (1-3.4); LYMPHS% (MANUAL) 11 % (22-44); METAMYELOCYTES% (MANUAL) 1 % (0-1); MONOS#(MANUAL) 1.59 x10^3/uL (0.3-2.7); MONOS% (MANUAL) 8 % (2-9); MYELOCYTES% (MANUAL) 2 % (0-0); SEG#(MANUAL) 15.52 x10^3/uL (1.8-6.8); SEGS% (MANUAL) 78 % (42-75)
[2020-06-22 05:47] LABS: OVALOCYTES 1+; POLYCHROMASIA 1+
[2020-06-22 05:48] LABS: <PLATELET ESTIMATE> ADEQUATE; <PLT MORPHOLOGY> NORMAL PLT MORPH; TARGET CELLS 1+
[2020-06-22 05:49] LABS: ANISOCYTOSIS 1+
[2020-06-22] MEDS ORDERED: POTASSIUM CHLORIDE 40 MEQ in SODIUM CHLORIDE 0.9% 500 ML IV ONE (07:00)
[2020-06-22] MEDS ORDERED: ALBUMIN HUMAN 25% 100 ML IV ONE (07:30)
[2020-06-22 07:38] VITALS: BP 132/82
[2020-06-22] MEDS: PANTOPRAZOLE 40 MG IV IVPush SCH (08:47)
[2020-06-22] MEDS: methylPREDNISolone SOD SUCC 125 MG/2 ML IVPush SCH (08:47)
[2020-06-22] MEDS: RIFAXIMIN 200 MG TABLET PO SCH ×3 (09:10→20:23)
[2020-06-22] MEDS: SPIRONOLACTONE 50 MG TABLET PO SCH (09:19)
[2020-06-22] MEDS ORDERED: LIDOCAINE 1%, 10ML ONE (10:27)
[2020-06-22 14:13] VITALS: BP 112/73
[2020-06-22 15:19] LABS: ALBUMIN 1.9 g/dL (3.4-5.0); ANION GAP 11 mmol/L (5-15); CALCIUM 8.6 mg/dL (8.5-10.1); CHLORIDE 98 mmol/L (98-107); CREATININE 1.51 mg/dL (0.55-1.02)
[2020-06-22] MEDS: CEFTRIAXONE PMX 2GM/50ML 50 ML IVPB SCH (17:10)
[2020-06-22 21:30] VITALS: BP 112/71
[2020-06-23 03:30] VITALS: BP 123/81
[2020-06-23 06:18] LABS: MEAN CORPUSCULAR HGB CONC 33.2 g/dL (32.4-35.8); MEAN PLATELET VOLUME 8.2 fL (7.4-10.4); PLATELET COUNT 255 x10^3/uL (130-400); RED BLOOD COUNT 3.36 x10^6/uL (3.82-5.3); RED CELL DISTRIBUTION WIDTH 16.3 % (9.6-15.2)
[2020-06-23 06:19] LABS: CHLORIDE 98 mmol/L (98-107)
[2020-06-23 06:34] LABS: ALANINE AMINOTRANSFERASE 65 U/L (12-78); ALBUMIN 2.2 g/dL (3.4-5.0); ALKALINE PHOSPHATASE 242 U/L (45-117); ANION GAP 12 mmol/L (5-15); BILIRUBIN,TOTAL 5.2 mg/dL (0.2-1.0); CALCIUM 8.9 mg/dL (8.5-10.1); CREATININE 1.21 mg/dL (0.55-1.02); TOTAL PROTEIN 6.9 g/dL (6.4-8.2)
[2020-06-23 06:40] LABS: MD YES
[2020-06-23 06:42] LABS: BAND#(MANUAL) 0.24 x10^3/uL; BANDS%(MANUAL) 1 % (0-7); LYMPH#(MANUAL) 1.42 x10^3/uL (1-3.4); LYMPHS% (MANUAL) 6 % (22-44); MONOS#(MANUAL) 1.42 x10^3/uL (0.3-2.7); MONOS% (MANUAL) 6 % (2-9); SEG#(MANUAL) 20.53 x10^3/uL (1.8-6.8); SEGS% (MANUAL) 87 % (42-75)
[2020-06-23 06:43] LABS: POLYCHROMASIA 1+; TARGET CELLS 1+
[2020-06-23 06:44] LABS: <PLATELET ESTIMATE> ADEQUATE; <PLT MORPHOLOGY> NORMAL PLT MORPH; ANISOCYTOSIS 2+
[2020-06-23] MEDS: SPIRONOLACTONE 50 MG TABLET PO SCH (08:33)
[2020-06-23] MEDS: RIFAXIMIN 200 MG TABLET PO SCH ×3 (08:33→20:18)
[2020-06-23] MEDS: methylPREDNISolone SOD SUCC 125 MG/2 ML IVPush SCH (08:33)
[2020-06-23] MEDS: PANTOPRAZOLE 40 MG IV IVPush SCH (08:33)
[2020-06-23 09:15] VITALS: BP 115/77
[2020-06-23 14:30] VITALS: BP 119/76
[2020-06-23] MEDS: SIMETHICONE 125 MG CHEW TAB PO SCH ×2 (17:18→20:18)
[2020-06-23] MEDS: LACTULOSE 20 GM/30 ML UDC PO SCH ×2 (17:19→20:18)
[2020-06-23] MEDS: CEFTRIAXONE PMX 2GM/50ML 50 ML IVPB SCH (17:19)
[2020-06-23 18:54] VITALS: BP 137/87
[2020-06-23] MEDS ORDERED: FLU VACC QS2020-21(6MOS UP)/PF 60MCG/0.5 ML SYR IM ONE (21:00)
[2020-06-24 00:56] VITALS: BP 136/84
[2020-06-24 08:26] VITALS: BP 140/79
[2020-06-24] MEDS: RIFAXIMIN 200 MG TABLET PO SCH ×3 (08:31→21:24)
[2020-06-24] MEDS: LACTULOSE 20 GM/30 ML UDC PO SCH (08:31)
[2020-06-24] MEDS: SIMETHICONE 125 MG CHEW TAB PO SCH ×4 (08:31→21:24)
[2020-06-24] MEDS: SPIRONOLACTONE 50 MG TABLET PO SCH (08:31)
[2020-06-24] MEDS: methylPREDNISolone SOD SUCC 125 MG/2 ML IVPush SCH (08:32)
[2020-06-24] MEDS: PANTOPRAZOLE 40 MG IV IVPush SCH (08:32)
[2020-06-24] MEDS ORDERED: OMNIPAQUE 350 MG/ML, 100ML BOTTLE ONE (13:32)
[2020-06-24 15:50] VITALS: BP 116/76
[2020-06-24] MEDS: CEFTRIAXONE PMX 2GM/50ML 50 ML IVPB SCH (16:27)
[2020-06-24 21:08] VITALS: BP 133/77
[2020-06-25 02:09] VITALS: BP 117/79
[2020-06-25 05:47] LABS: MEAN CORPUSCULAR HEMOGLOBIN 36.7 pg (27.0-34.8); MEAN CORPUSCULAR HGB CONC 33.2 g/dL (32.4-35.8); MEAN PLATELET VOLUME 8.4 fL (7.4-10.4); PLATELET COUNT 204 x10^3/uL (130-400); RED BLOOD COUNT 3.11 x10^6/uL (3.82-5.3); RED CELL DISTRIBUTION WIDTH 16.4 % (9.6-15.2)
[2020-06-25 05:55] LABS: ANION GAP 4 mmol/L (5-15); CALCIUM 8.8 mg/dL (8.5-10.1); CHLORIDE 100 mmol/L (98-107)
[2020-06-25 05:59] LABS: ALANINE AMINOTRANSFERASE 67 U/L (12-78); ALKALINE PHOSPHATASE 224 U/L (45-117); BILIRUBIN,TOTAL 4.2 mg/dL (0.2-1.0); CREATININE 0.87 mg/dL (0.55-1.02); TOTAL PROTEIN 6.6 g/dL (6.4-8.2)
[2020-06-25 06:14] LABS: MD YES
[2020-06-25 06:17] LABS: BAND#(MANUAL) 1.31 x10^3/uL; BANDS%(MANUAL) 7 % (0-7); LYMPH#(MANUAL) 2.62 x10^3/uL (1-3.4); LYMPHS% (MANUAL) 14 % (22-44); METAMYELOCYTES# (MANUAL) 0.19 x10^3/uL (0-0); METAMYELOCYTES% (MANUAL) 1 % (0-1); MONOS#(MANUAL) 1.87 x10^3/uL (0.3-2.7); MONOS% (MANUAL) 10 % (2-9); MYELOCYTES# (MANUAL) 0.37 x10^3/uL (0-0); MYELOCYTES% (MANUAL) 2 % (0-0); SEG#(MANUAL) 12.34 x10^3/uL (1.8-6.8); SEGS% (MANUAL) 66 % (42-75)
[2020-06-25 06:18] LABS: ANISOCYTOSIS 1+; POLYCHROMASIA 1+
[2020-06-25 06:20] LABS: TARGET CELLS 1+
[2020-06-25 06:25] LABS: <PLATELET ESTIMATE> ADEQUATE; <PLT MORPHOLOGY> NORMAL PLT MORPH
[2020-06-25 08:15] VITALS: BP 122/80
[2020-06-25] MEDS: methylPREDNISolone SOD SUCC 125 MG/2 ML IVPush SCH (08:24)
[2020-06-25] MEDS: RIFAXIMIN 200 MG TABLET PO SCH ×3 (08:24→20:24)
[2020-06-25] MEDS: SPIRONOLACTONE 50 MG TABLET PO SCH (08:24)
[2020-06-25] MEDS: SIMETHICONE 125 MG CHEW TAB PO SCH ×4 (08:24→20:24)
[2020-06-25] MEDS: METHADONE 40 MG TABLET.SOL PO SCH (08:25)
[2020-06-25] MEDS: PANTOPRAZOLE 40 MG IV IVPush SCH (08:25)
[2020-06-25 13:16] VITALS: BP 114/80
[2020-06-25] MEDS: LACTULOSE 20 GM/30 ML UDC PO SCH ×2 (15:41→20:24)
[2020-06-25] MEDS: CEFTRIAXONE PMX 2GM/50ML 50 ML IVPB SCH (15:42)
[2020-06-25 19:08] VITALS: BP 119/81
[2020-06-26 01:25] VITALS: BP 125/79
[2020-06-26] MEDS ORDERED: PANTOPRAZOLE 40MG TABLET PO SCH (07:30)
[2020-06-26 07:45] VITALS: BP 113/78
[2020-06-26] MEDS ORDERED: prednisOLONE 15 MG/5 ML ORAL SOLN PO SCH (08:00)
[2020-06-26] MEDS: LACTULOSE 20 GM/30 ML UDC PO SCH ×2 (09:16→16:00)
[2020-06-26] MEDS: SIMETHICONE 125 MG CHEW TAB PO SCH ×3 (09:16→16:50)
[2020-06-26] MEDS: SPIRONOLACTONE 50 MG TABLET PO SCH (09:16)
[2020-06-26] MEDS: METHADONE 40 MG TABLET.SOL PO SCH (09:19)
[2020-06-26] MEDS: RIFAXIMIN 200 MG TABLET PO SCH ×2 (10:37→16:50)
[2020-06-26] MEDS ORDERED: PRED15SO3 PO (12:18)
[2020-06-26] MEDS ORDERED: RIFA200T5 PO (12:18)
[2020-06-26] MEDS ORDERED: PANT40TA6 PO (12:18)
[2020-06-26 13:10] VITALS: BP 137/83
[2020-06-26] MEDS: CEFTRIAXONE PMX 2GM/50ML 50 ML IVPB SCH (15:00)
== END 2020-06-26 17:13 | disposition home or self-care (01) | DRG 279 ==
LOC: ED 13:07 → EDIP 14:36 → 5SO 15:15
PROVIDERS: ADMIT Family Medicine; ATTEND Internal Medicine
PROC: 0W9G30Z Drainage of Peritoneal Cavity with Drainage Device, Percutaneous Approach (ICD-10-PCS; 2020-06-20)
PROC: 0T9B70Z Drainage of Bladder with Drainage Device, Via Natural or Artificial Opening (ICD-10-PCS; 2020-06-20)
PROC: 0W9G30Z Drainage of Peritoneal Cavity with Drainage Device, Percutaneous Approach (ICD-10-PCS; principal; 2020-06-22)
DX: K72.90 Hepatic failure, unspecified without coma (principal); K70.31 Alcoholic cirrhosis of liver with ascites; B96.20 Unspecified Escherichia coli [E. coli] as the cause of diseases classified elsewhere; E43 Unspecified severe protein-calorie malnutrition; E87.1 Hypo-osmolality and hyponatremia; E87.6 Hypokalemia; F10.239 Alcohol dependence with withdrawal, unspecified; F11.20 Opioid dependence, uncomplicated; G93.41 Metabolic encephalopathy; K56.7 Ileus, unspecified; K76.7 Hepatorenal syndrome; N17.9 Acute kidney failure, unspecified; N18.9 Chronic kidney disease, unspecified; N39.0 Urinary tract infection, site not specified; Z80.0 Family history of malignant neoplasm of digestive organs; Z80.1 Family history of malignant neoplasm of trachea, bronchus and lung; Z91.14 Patient's other noncompliance with medication regimen; Y90.9 Presence of alcohol in blood, level not specified; Z79.899 Other long term (current) drug therapy; F19.10 Other psychoactive substance abuse, uncomplicated
CPT/HCPCS: J3490 ×2; 36415; 49083; 71045; 74018; 74177; 80048; 80053; 80307; 81001; 82040; 82042; 82140; 83605; 83615; 83690; 83735; 84703; 85025; 85610; 87040; 87070; 87077; 87086; 87186; 87205; 87324; 87493; 89051; 90686; 93005; 96374; 99291; G0378; J0696; J3480; P9047; Q9967; C9113; J2930; J7040; J7510

== ENCOUNTER 2020-07-04 16:15 | Emergency (ER) | payer MEDICAID ==
[~2020-07-04] VITALS: Ht 154.9 cm; Wt 80.0 kg
[~2020-07-04 16:15] MED LIST changes: +PANT40TA6 PO; +PRED15SO3 PO; +RIFA200T5 PO
--- NOTE | 2020-07-04 18:04 | NUR ---
US AT BEDSIDE/. PT UPRIGHT ON GURNEY WITH EYES CLOSED. NAD, VSS. PT DENIES ANY NEEDS AT THIS TIME. CALL LIGHT AND PERSONAL BELONGINGS WITHIN REACH, WILL CONTINUE TO MONITOR.
[2020-07-04 18:07] LABS: MEAN CORPUSCULAR HEMOGLOBIN 36.8 pg (27.0-34.8); MEAN CORPUSCULAR HGB CONC 32.9 g/dL (32.4-35.8); MEAN PLATELET VOLUME 8.7 fL (7.4-10.4); PLATELET COUNT 196 x10^3/uL (130-400); RED BLOOD COUNT 2.98 x10^6/uL (3.82-5.3)
[2020-07-04 18:25] LABS: ALBUMIN 2.5 g/dL (3.4-5.0); ANION GAP 4 mmol/L (5-15); CALCIUM 8.8 mg/dL (8.5-10.1); CHLORIDE 108 mmol/L (98-107)
[2020-07-04 18:28] LABS: MD YES
[2020-07-04 18:29] LABS: ALANINE AMINOTRANSFERASE 76 U/L (12-78); ALKALINE PHOSPHATASE 180 U/L (45-117); BILIRUBIN,TOTAL 2.6 mg/dL (0.2-1.0); CREATININE 0.69 mg/dL (0.55-1.02); TOTAL PROTEIN 6.7 g/dL (6.4-8.2)
[2020-07-04 18:31] LABS: EOS#(MANUAL) 0.09 x10^3/uL (0.0-0.4); EOS% (MANUAL) 1 % (1-7); LYMPH#(MANUAL) 0.51 x10^3/uL (1-3.4); LYMPHS% (MANUAL) 6 % (22-44); MONOS#(MANUAL) 0.17 x10^3/uL (0.3-2.7); MONOS% (MANUAL) 2 % (2-9); SEG#(MANUAL) 7.74 x10^3/uL (1.8-6.8); SEGS% (MANUAL) 91 % (42-75)
[2020-07-04 18:32] LABS: HYPOCHROMIA 1+; TOXIC GRAN 2+
[2020-07-04 18:33] LABS: <PLATELET ESTIMATE> ADEQUATE; <PLT MORPHOLOGY> NORMAL PLT MORPH; ANISOCYTOSIS 1+
[2020-07-04 18:34] LABS: OVALOCYTES 1+; TARGET CELLS 1+; TEAR DROPS 1+
--- NOTE | 2020-07-04 18:56 | NUR ---
BEDSIDE REPORT GIVEN TO TATYANA ARIZMENDI
[2020-07-04 19:15] VITALS: BP 116/76
--- NOTE | 2020-07-04 19:16 | NUR ---
PT VSS. AMBULATORY AT DISCHARGE. INSTRUCTED PT TO FILL DIURETICS AT HOME PER PCP AND TAKE DIRECTED. FOLLOW UP WITH PCP. PT VERBALIZED UNDERSTANDING. PT CALLING SON FOR RIDE HOME.
== END 2020-07-04 19:25 | disposition home or self-care (01) ==
LOC: ED 17:14
DX: K70.31 Alcoholic cirrhosis of liver with ascites (principal); R60.0 Localized edema; R53.1 Weakness
CPT/HCPCS: 36415; 80053; 82140; 83690; 85025; 93970; 99284

== ENCOUNTER 2020-07-26 11:01 | Emergency (ER) | payer MEDICAID ==
[~2020-07-26] VITALS: Ht 154.9 cm; Wt 73.0 kg
--- NOTE | 2020-07-26 11:33 | NUR ---
INITIAL PT CONTACT. PT PRESENTS TO ED C/O "MY STOMACH, MY CHEST AND MY BACK HURT SO BAD, I CAN'T WALK". PT CRYING, ANXIOUS AND HYPERVENTILATING UPON ENTRY TO ROOM. HX LIVER CIRRHOSIS. PT UPRIGHT ON EDGE OF GURNEY, CONTINUOUS PULSE OX AND BAGMAN/WOMAN IN PLACE. CALL LIGHT IN REACH. AWAITING ERP.
[2020-07-26] MEDS ORDERED: MORPHINE SULFATE 4 MG/ML, 1ML IVPush PRN (12:30)
[2020-07-26] MEDS ORDERED: ONDANSETRON 2MG/ML, 2ML IVPush ONE (12:30)
[2020-07-26] MEDS ORDERED: SODIUM CHLORIDE 0.9% 1,000 ML IV ONE (12:30)
[2020-07-26] MEDS ORDERED: ONDANSETRON 2MG/ML, 2ML ONE (12:37)
[2020-07-26] MEDS ORDERED: MORPHINE SULFATE 4 MG/ML, 1ML ONE (12:38)
--- NOTE | 2020-07-26 13:00 | NUR ---
PT SITTING UPRIGHT ON GURNEY. TEARFUL AND MOANING. PT PROVIDED ADDITIONAL BLANKETS. WILL CONTINUE TO MONITOR.
--- NOTE | 2020-07-26 13:30 | NUR ---
MULTIPLE ATTEMPTS TO OBTAIN PIV. ADDITIONAL STAFF AT BEDSIDE FOR ATTEMPT PLACEMENT.
--- NOTE | 2020-07-26 13:44 | NUR ---
CT WAITING FOR IV ACCESS & LAB RESULTS
--- NOTE | 2020-07-26 14:01 | NUR ---
PIV PLACED. PT MEDICATED PER EMAR WITH DECREASE IN PAIN. PT REQUESTS PURE WICK, PLACED PER REQUEST. PT DENIES ANY ADDITIONAL NEEDS AT THIS TIME. CALL LIGHT AND PERSONAL BELONGINGS WITHIN REACH.
[2020-07-26 14:15] LABS: MICROSCOPIC NOT IND
[2020-07-26 14:56] LABS: ALBUMIN 2.7 g/dL (3.4-5.0); ANION GAP 7 mmol/L (5-15); CALCIUM 8.2 mg/dL (8.5-10.1); CHLORIDE 106 mmol/L (98-107)
--- NOTE | 2020-07-26 15:01 | NUR ---
PT RESTING ON GURNEY COMFORTABLY ON CELL PHONE. LAB AT BEDSIDE. PT DENIES ANY ADDITIONAL NEEDS.
[2020-07-26 15:06] LABS: ALANINE AMINOTRANSFERASE 67 U/L (12-78); ALKALINE PHOSPHATASE 149 U/L (45-117); BILIRUBIN,TOTAL 0.9 mg/dL (0.2-1.0); CREATININE 0.55 mg/dL (0.55-1.02); TROPONIN I < 0.015 ng/mL (0.000-0.045)
[2020-07-26 15:26] LABS: BASOPHILS % (AUTO) 0 % (0-1); EOSINOPHILS % (AUTO) 0 % (1-7); LYMPHOCYTES % (AUTO) 3 % (22-44); MEAN CORPUSCULAR HEMOGLOBIN 34.5 pg (27.0-34.8); MEAN CORPUSCULAR HGB CONC 33.3 g/dL (32.4-35.8); MEAN PLATELET VOLUME 8.7 fL (7.4-10.4); MONOCYTES % (AUTO) 4 % (2-9); NEUTROPHILS % (AUTO) 92 % (42-75); PLATELET COUNT 175 x10^3/uL (130-400); RED BLOOD COUNT 3.38 x10^6/uL (3.82-5.3); RED CELL DISTRIBUTION WIDTH 15.7 % (9.6-15.2)
[2020-07-26 15:37] LABS: MD NO
--- NOTE | 2020-07-26 15:48 | NUR ---
PT UP TO BATHROOM WITH STEADY GAIT
--- NOTE | 2020-07-26 15:51 | NUR ---
PT TO IMAGING
--- NOTE | 2020-07-26 16:00 | NUR ---
PT SUPINE ON GURNEY, RESTING COMFORTABLY WITH EYES CLOSED. PT DENIES ANY NEEDS AT THIS TIME. DECREASED PAIN REPORTED. WILL CONTINUE TO MONITOR.
[2020-07-26] MEDS ORDERED: OMNIPAQUE 350 MG/ML, 100ML BOTTLE ONE (16:05)
[2020-07-26 17:01] VITALS: BP 132/81
--- NOTE | 2020-07-26 17:02 | NUR ---
PT SUPINE ON GURNEY, RESTING COMFORTABLY WITH EYES CLOSED. PT DENIES ANY NEEDS AT THIS TIME. WILL CONTINUE TO MONITOR. "I GUESS I FEEL GOOD ENOUGH TO GO HOME"
--- NOTE | 2020-07-26 17:30 | NUR ---
Patient given discharge instructions and Rx, they have confirmed that they understand the instructions. Patient ambulatory with steady gait.
== END 2020-07-26 17:42 | disposition home or self-care (01) ==
LOC: ED 12:02
DX: R10.84 Generalized abdominal pain (principal); R07.89 Other chest pain; R94.31 Abnormal electrocardiogram [ECG] [EKG]
CPT/HCPCS: 36415; 71045; 74177; 80053; 81003; 83690; 84484; 85025; 93005; 96361; 96374; 96375; 99285; J2270; J2405; J7030; Q9967

== ENCOUNTER 2020-07-27 15:34 | Inpatient (IN) | payer MEDICAID ==
[~2020-07-27] VITALS: Ht 154.9 cm; Wt 82.3 kg
[2020-07-27 16:29] LABS: BASOPHILS % (AUTO) 0 % (0-1); EOSINOPHILS % (AUTO) 0 % (1-7); LYMPHOCYTES % (AUTO) 9 % (22-44); MEAN CORPUSCULAR HEMOGLOBIN 34.5 pg (27.0-34.8); MEAN PLATELET VOLUME 8.8 fL (7.4-10.4); MONOCYTES % (AUTO) 7 % (2-9); NEUTROPHILS % (AUTO) 84 % (42-75); PLATELET COUNT 174 x10^3/uL (130-400); RED BLOOD COUNT 3.93 x10^6/uL (3.82-5.3); RED CELL DISTRIBUTION WIDTH 15.8 % (9.6-15.2)
[2020-07-27] MEDS ORDERED: SODIUM CHLORIDE FLUSH 10ML SYR IVF ONE (16:30)
[2020-07-27 16:31] LABS: MD NO
[2020-07-27 16:39] LABS: INTERNATIONAL NORMALIZED RATIO 1.04 (0.93-1.1)
[2020-07-27 16:43] LABS: ALANINE AMINOTRANSFERASE 75 U/L (12-78); ALBUMIN 2.9 g/dL (3.4-5.0); ANION GAP 4 mmol/L (5-15); CALCIUM 9.1 mg/dL (8.5-10.1); CHLORIDE 101 mmol/L (98-107); CREATININE 0.62 mg/dL (0.55-1.02)
[2020-07-27 16:45] LABS: ALKALINE PHOSPHATASE 147 U/L (45-117); BILIRUBIN,TOTAL 1.6 mg/dL (0.2-1.0)
[2020-07-27] MEDS ORDERED: MORPHINE SULFATE 4 MG/ML, 1ML ONE ×2 (16:57→17:41)
[2020-07-27] MEDS: MORPHINE SULFATE 4 MG/ML, 1ML IVPush PRN ×2 (17:00→17:46)
--- NOTE | 2020-07-27 17:02 | NUR ---
TASK RN: PATIENT MEDICATED PER EMAR
--- NOTE | 2020-07-27 17:04 | NUR ---
PT ABLE TO AMBULATE WITH SBA TO BR, PROVIDED URINE/UA SENT TO LAB. PT PLACED ON ALL ROOM MONITORING. IV PLACED. CALL LIGHT WITHIN REACH, CLIFF WARMER AND WARM BLANKETS PROVIDED.
[2020-07-27 17:38] LABS: MICROSCOPIC NOT IND
--- NOTE | 2020-07-27 17:47 | NUR ---
PT STATES PAIN DECREASED FROM 9/10 TO 5-6/10, REQUESTING MORE PAIN MEDICATION. PT GIVEN 2ND DOSE OF MORPHINE PER ERP ORDER. OXYGEN PLACED AT 2LITERS VIA NC FOR DESAT TO 89% RA FOLLOWING MED. VS UPDATED IN COMPUTER. CALL LIGHT WITHIN REACH. PT FOR RECHECK.
--- NOTE | 2020-07-27 18:29 | NUR ---
PT SLEEPING, NAD. VSS/UPDATED IN COMPUTER.
[2020-07-27] MEDS ORDERED: VANCOMYCIN 1,800 MG in SODIUM CHLORIDE 0.9% 250 ML IV ONE (19:00)
[2020-07-27] MEDS ORDERED: PIPERACILLIN/TAZO/PMX 4.5GM 100 ML IVPB ONE (19:00)
[2020-07-27] MEDS ORDERED: SODIUM CHLORIDE 0.9% 1,000 ML IV ONE (19:00)
[2020-07-27] MEDS ORDERED: SODIUM CHLORIDE FLUSH 10ML SYR IVF PRN (19:00)
[2020-07-27] MEDS ORDERED: VANCOMYCIN PER PHARMACY MC ONE (19:00)
[2020-07-27] MEDS: SODIUM CHLORIDE 0.9% 1,000 ML IV SCH (19:07)
--- NOTE | 2020-07-27 19:21 | NUR ---
IV INFILTRATE/IV REMOVED. PETR RN IN TO START NEW IV.
[2020-07-27] MEDS ORDERED: ONDANSETRON ODT 4 MG PO PRN (20:00)
[2020-07-27] MEDS ORDERED: POLYETHYLENE GLYCOL 17 GM PACKET PO PRN (20:00)
[2020-07-27] MEDS ORDERED: BISACODYL 10 MG SUPP PR PRN (20:00)
[2020-07-27 20:13] VITALS: BP 120/77
[2020-07-27] MEDS: SPIRONOLACTONE 25 MG TABLET PO SCH (22:02)
[2020-07-27] MEDS: RIFAXIMIN 200 MG TABLET PO SCH (22:02)
[2020-07-27] MEDS: HEPARIN 5,000 UNITS/ML, 1ML SQ SCH (22:03)
[2020-07-27] MEDS: morphine SULFATE 10 MG/ML, 1ML IVPush PRN (22:09)
[2020-07-28 01:22] VITALS: BP 120/73
[2020-07-28 05:10] LABS: BASOPHILS % (AUTO) 1 % (0-1); EOSINOPHILS % (AUTO) 0 % (1-7); LYMPHOCYTES % (AUTO) 10 % (22-44); MEAN CORPUSCULAR HEMOGLOBIN 34.9 pg (27.0-34.8); MEAN CORPUSCULAR HGB CONC 33.7 g/dL (32.4-35.8); MEAN PLATELET VOLUME 8.7 fL (7.4-10.4); MONOCYTES % (AUTO) 6 % (2-9); NEUTROPHILS % (AUTO) 83 % (42-75); PLATELET COUNT 170 x10^3/uL (130-400); RED BLOOD COUNT 3.33 x10^6/uL (3.82-5.3); RED CELL DISTRIBUTION WIDTH 15.6 % (9.6-15.2)
[2020-07-28 05:20] LABS: MD NO
[2020-07-28 05:22] LABS: ALBUMIN 2.5 g/dL (3.4-5.0); ANION GAP 7 mmol/L (5-15); CALCIUM 8.8 mg/dL (8.5-10.1); CHLORIDE 102 mmol/L (98-107)
[2020-07-28 05:26] LABS: ALANINE AMINOTRANSFERASE 60 U/L (12-78); ALKALINE PHOSPHATASE 111 U/L (45-117); BILIRUBIN,TOTAL 2.5 mg/dL (0.2-1.0); CREATININE 0.63 mg/dL (0.55-1.02); TOTAL PROTEIN 6.2 g/dL (6.4-8.2)
[2020-07-28] MEDS: HEPARIN 5,000 UNITS/ML, 1ML SQ SCH ×3 (06:37→22:41)
[2020-07-28] MEDS: morphine SULFATE 10 MG/ML, 1ML IVPush PRN ×3 (06:43→22:39)
[2020-07-28 07:11] VITALS: BP 119/76
[2020-07-28] MEDS: PANTOPRAZOLE 40MG TABLET PO SCH (09:17)
[2020-07-28] MEDS: SPIRONOLACTONE 25 MG TABLET PO SCH ×2 (09:17→22:41)
[2020-07-28] MEDS: RIFAXIMIN 200 MG TABLET PO SCH ×3 (09:17→22:41)
[2020-07-28] MEDS: FUROSEMIDE 20 MG TABLET PO SCH (09:17)
[2020-07-28] MEDS: SENNA/DOCUSATE TABLET PO SCH (09:17)
[2020-07-28] MEDS: METHADONE 40 MG TABLET.SOL PO SCH (09:18)
[2020-07-28] MEDS: SODIUM CHLORIDE 0.9% 1,000 ML IV SCH (09:21)
[2020-07-28] MEDS ORDERED: POTASSIUM CHLORIDE 20 MEQ TAB.ER.PRT PO ONE (09:30)
[2020-07-28] MEDS ORDERED: PIPERACILLIN/TAZO/PMX 3.375GM 50 ML IV SCH (10:30)
[2020-07-28] MEDS ORDERED: VANCOMYCIN PER PHARMACY MC PRN (11:30)
[2020-07-28] MEDS ORDERED: PHARMACOKINETIC MONITORING MC PRN (12:00)
[2020-07-28 12:40] VITALS: BP 101/69
[2020-07-28] MEDS: LACTULOSE 20 GM/30 ML UDC PO PRN ×2 (14:10→22:39)
[2020-07-28] MEDS ORDERED: VANCOMYCIN 1,400 MG in SODIUM CHLORIDE 0.9% 250 ML IV SCH (15:00)
[2020-07-28] MEDS: VANCOMYCIN 1,400 MG in SODIUM CHLORIDE 0.9% 250 ML IV SCH (15:39)
[2020-07-28] MEDS ORDERED: PIPERACILLIN/TAZO/PMX 4.5GM 100 ML IV SCH (16:30)
[2020-07-28] MEDS: PIPERACILLIN/TAZO/PMX 4.5GM 100 ML IV SCH ×2 (17:19→22:40)
[2020-07-28 18:54] VITALS: BP 108/57
[2020-07-28 21:46] LABS: AMPHETAMINE SCREEN, URINE Positive (Negative); BARBITURATE SCREEN, URINE Negative (Negative); BENZODIAZEPINE SCREEN, URINE Negative (Negative); CANNABINOID SCREEN, URINE Negative (Negative); COCAINE SCREEN, URINE Negative (Negative); METHADONE SCREEN, URINE Positive (Negative); OPIATE SCREEN, URINE Positive (Negative)
[2020-07-29] MEDS: SODIUM CHLORIDE 0.9% 1,000 ML IV SCH ×2 (01:00→13:49)
[2020-07-29 01:26] VITALS: BP 115/74
[2020-07-29] MEDS: morphine SULFATE 10 MG/ML, 1ML IVPush PRN ×2 (03:05→20:20)
[2020-07-29] MEDS: VANCOMYCIN 1,400 MG in SODIUM CHLORIDE 0.9% 250 ML IV SCH ×2 (03:05→17:33)
[2020-07-29] MEDS: PIPERACILLIN/TAZO/PMX 4.5GM 100 ML IV SCH ×4 (04:55→22:35)
[2020-07-29 05:07] LABS: BASOPHILS % (AUTO) 0 % (0-1); EOSINOPHILS % (AUTO) 1 % (1-7); LYMPHOCYTES % (AUTO) 7 % (22-44); MEAN CORPUSCULAR HEMOGLOBIN 35.1 pg (27.0-34.8); MEAN CORPUSCULAR HGB CONC 34.2 g/dL (32.4-35.8); MEAN PLATELET VOLUME 9.1 fL (7.4-10.4); MONOCYTES % (AUTO) 7 % (2-9); NEUTROPHILS % (AUTO) 85 % (42-75); PLATELET COUNT 147 x10^3/uL (130-400); RED BLOOD COUNT 2.97 x10^6/uL (3.82-5.3); RED CELL DISTRIBUTION WIDTH 15.5 % (9.6-15.2)
[2020-07-29 05:08] LABS: MD NO
[2020-07-29 05:17] LABS: ALBUMIN 2.3 g/dL (3.4-5.0); ANION GAP 8 mmol/L (5-15); CALCIUM 8.1 mg/dL (8.5-10.1); CHLORIDE 106 mmol/L (98-107)
[2020-07-29 05:20] LABS: ALANINE AMINOTRANSFERASE 50 U/L (12-78); ALKALINE PHOSPHATASE 96 U/L (45-117); BILIRUBIN,TOTAL 2.3 mg/dL (0.2-1.0); TOTAL PROTEIN 5.8 g/dL (6.4-8.2)
[2020-07-29] MEDS: HEPARIN 5,000 UNITS/ML, 1ML SQ SCH ×3 (05:29→22:32)
[2020-07-29 06:31] VITALS: BP 112/72
[2020-07-29] MEDS: PANTOPRAZOLE 40MG TABLET PO SCH (07:54)
[2020-07-29] MEDS: RIFAXIMIN 200 MG TABLET PO SCH ×3 (09:35→20:19)
[2020-07-29] MEDS: SENNA/DOCUSATE TABLET PO SCH (09:35)
[2020-07-29] MEDS: METHADONE 40 MG TABLET.SOL PO SCH (09:36)
[2020-07-29] MEDS: FUROSEMIDE 20 MG TABLET PO SCH (09:36)
[2020-07-29] MEDS: SPIRONOLACTONE 25 MG TABLET PO SCH ×2 (09:37→20:19)
[2020-07-29 12:09] VITALS: BP 113/71
[2020-07-29] MEDS ORDERED: MAGNESIUM SULFATE PMX 2GM/50ML 50 ML IV ONE (13:30)
[2020-07-29] MEDS: POTASSIUM CHLORIDE 20 MEQ TAB.ER.PRT PO SCH (16:50)
[2020-07-29 19:00] VITALS: BP 113/74
[2020-07-30 00:15] VITALS: BP 109/68
[2020-07-30] MEDS: morphine SULFATE 10 MG/ML, 1ML IVPush PRN ×2 (00:24→06:10)
[2020-07-30] MEDS: VANCOMYCIN 1,400 MG in SODIUM CHLORIDE 0.9% 250 ML IV SCH ×3 (03:26→17:27)
[2020-07-30] MEDS: PIPERACILLIN/TAZO/PMX 4.5GM 100 ML IV SCH ×4 (06:10→18:18)
[2020-07-30 06:52] VITALS: BP 110/72
[2020-07-30] MEDS: HEPARIN 5,000 UNITS/ML, 1ML SQ SCH ×2 (06:59→16:50)
[2020-07-30] MEDS: RIFAXIMIN 200 MG TABLET PO SCH ×3 (07:49→20:10)
[2020-07-30] MEDS: PANTOPRAZOLE 40MG TABLET PO SCH (07:49)
[2020-07-30] MEDS: METHADONE 40 MG TABLET.SOL PO SCH (07:49)
[2020-07-30] MEDS: SPIRONOLACTONE 25 MG TABLET PO SCH ×2 (07:50→20:10)
[2020-07-30] MEDS: SENNA/DOCUSATE TABLET PO SCH (07:50)
[2020-07-30] MEDS: POTASSIUM CHLORIDE 20 MEQ TAB.ER.PRT PO SCH (07:50)
[2020-07-30] MEDS: FUROSEMIDE 20 MG TABLET PO SCH (08:05)
[2020-07-30] MEDS: SODIUM CHLORIDE 0.9% 1,000 ML IV SCH ×2 (08:06→20:12)
[2020-07-30] MEDS ORDERED: MIDAZOLAM 1 MG/ML, 2ML ONE (08:23)
[2020-07-30] MEDS ORDERED: FENTANYL PF 250 MCG/5ML ONE ×2 (08:23→10:09)
[2020-07-30] MEDS ORDERED: ONDANSETRON 2MG/ML, 2ML ONE (08:24)
[2020-07-30] MEDS ORDERED: DEXAMETHASONE 4 MG/ML, 1ML ONE (08:24)
[2020-07-30] MEDS ORDERED: PROPOFOL 10 MG/ML, 20ML ONE (08:24)
[2020-07-30] MEDS ORDERED: ROCURONIUM 10MG/ML,5ML ONE (08:24)
[2020-07-30] MEDS ORDERED: CEFAZOLIN 1,000 MG ONE (08:24)
[2020-07-30] MEDS ORDERED: NEOSTIGMINE 1 MG/ML, 10ML ONE (08:24)
[2020-07-30] MEDS ORDERED: GLYCOPYRROLATE 0.2MG/1ML, 5ML ONE (08:24)
[2020-07-30] MEDS ORDERED: OXYcodone 5 MG/5 ML ORAL.SOL UDC PO PRN (08:30)
[2020-07-30] MEDS ORDERED: hydrALAzine 20 MG/ML, 1ML IV PRN (08:30)
[2020-07-30] MEDS ORDERED: morphine SULFATE 10 MG/ML, 1ML IVPush PRN (08:30)
[2020-07-30] MEDS ORDERED: MEPERIDINE/PF 25MG/0.5ML IVPush PRN (08:30)
[2020-07-30] MEDS ORDERED: HALOPERIDOL 5 MG/ML IV PRN (08:30)
[2020-07-30] MEDS ORDERED: FENTANYL PF 100 MCG/2ML IV PRN (08:30)
[2020-07-30] MEDS ORDERED: LABETALOL 5MG/ML, 20ML IV PRN (08:30)
[2020-07-30] MEDS ORDERED: HYDROmorphone 1 MG/ML, 1ML INJ IVPush PRN (08:30)
[2020-07-30] MEDS ORDERED: PROMETHAZINE 25 MG/ML, 1ML IVPush PRN (08:30)
[2020-07-30] MEDS ORDERED: OMNIPAQUE 350 MG/ML, 50 ML BOTTLE ONE (10:20)
[2020-07-30 14:19] VITALS: BP 106/66
[2020-07-30 19:32] VITALS: BP 93/61
[2020-07-30] MEDS: LACTULOSE 20 GM/30 ML UDC PO PRN (20:19)
[2020-07-31] MEDS: HEPARIN 5,000 UNITS/ML, 1ML SQ SCH ×3 (00:14→16:13)
[2020-07-31] MEDS: PIPERACILLIN/TAZO/PMX 4.5GM 100 ML IV SCH ×4 (00:26→18:41)
[2020-07-31 01:36] VITALS: BP 99/61
[2020-07-31] MEDS: VANCOMYCIN 1,400 MG in SODIUM CHLORIDE 0.9% 250 ML IV SCH (03:09)
[2020-07-31 06:11] LABS: BASOPHILS % (AUTO) 0 % (0-1); EOSINOPHILS % (AUTO) 0 % (1-7); LYMPHOCYTES % (AUTO) 5 % (22-44); MEAN CORPUSCULAR HEMOGLOBIN 34.4 pg (27.0-34.8); MEAN CORPUSCULAR HGB CONC 33.2 g/dL (32.4-35.8); MEAN PLATELET VOLUME 9.8 fL (7.4-10.4); MONOCYTES % (AUTO) 7 % (2-9); NEUTROPHILS % (AUTO) 87 % (42-75); PLATELET COUNT 154 x10^3/uL (130-400); RED BLOOD COUNT 2.91 x10^6/uL (3.82-5.3); RED CELL DISTRIBUTION WIDTH 15.6 % (9.6-15.2)
[2020-07-31 06:14] LABS: ALBUMIN 2.3 g/dL (3.4-5.0); ANION GAP 7 mmol/L (5-15); CALCIUM 8.7 mg/dL (8.5-10.1); CHLORIDE 108 mmol/L (98-107)
[2020-07-31 06:19] LABS: ALANINE AMINOTRANSFERASE 40 U/L (12-78); ALKALINE PHOSPHATASE 98 U/L (45-117); CREATININE 0.78 mg/dL (0.55-1.02); TOTAL PROTEIN 6.4 g/dL (6.4-8.2)
[2020-07-31 06:43] VITALS: BP 110/75
[2020-07-31] MEDS: SENNA/DOCUSATE TABLET PO SCH (08:08)
[2020-07-31] MEDS: RIFAXIMIN 200 MG TABLET PO SCH ×3 (08:08→20:23)
[2020-07-31] MEDS: METHADONE 40 MG TABLET.SOL PO SCH (08:08)
[2020-07-31] MEDS: PANTOPRAZOLE 40MG TABLET PO SCH (08:08)
[2020-07-31] MEDS: FUROSEMIDE 20 MG TABLET PO SCH (08:10)
[2020-07-31] MEDS: SPIRONOLACTONE 25 MG TABLET PO SCH ×2 (08:10→20:23)
[2020-07-31] MEDS: LACTULOSE 20 GM/30 ML UDC PO PRN (08:23)
[2020-07-31 08:35] LABS: ANISOCYTOSIS 1+; MD MORPH REVIEW ONLY
[2020-07-31 08:36] LABS: OVALOCYTES 1+; POLYCHROMASIA 1+
[2020-07-31 09:08] LABS: <PLATELET ESTIMATE> ADEQUATE
[2020-07-31 09:09] LABS: <PLT MORPHOLOGY> NORMAL PLT MORPH
[2020-07-31] MEDS: SODIUM CHLORIDE 0.9% 1,000 ML IV SCH (11:39)
[2020-07-31 12:17] VITALS: BP 104/67
[2020-07-31 18:25] VITALS: BP 98/62
[2020-07-31] MEDS: LACTOBACILLUS CHEW TABLET PO SCH (20:23)
[2020-07-31] MEDS: morphine SULFATE 10 MG/ML, 1ML IVPush PRN (23:20)
[2020-08-01] MEDS: HEPARIN 5,000 UNITS/ML, 1ML SQ SCH ×2 (00:52→08:16)
[2020-08-01] MEDS: PIPERACILLIN/TAZO/PMX 4.5GM 100 ML IV SCH ×3 (00:52→12:27)
[2020-08-01 01:49] VITALS: BP 117/76
[2020-08-01] MEDS: SODIUM CHLORIDE 0.9% 1,000 ML IV SCH (03:28)
[2020-08-01 05:18] LABS: ANION GAP 7 mmol/L (5-15); CALCIUM 8.3 mg/dL (8.5-10.1); CHLORIDE 109 mmol/L (98-107); CREATININE 0.73 mg/dL (0.55-1.02)
[2020-08-01 05:32] LABS: BASOPHILS % (AUTO) 1 % (0-1); EOSINOPHILS % (AUTO) 1 % (1-7); LYMPHOCYTES % (AUTO) 13 % (22-44); MEAN CORPUSCULAR HEMOGLOBIN 34.4 pg (27.0-34.8); MEAN CORPUSCULAR HGB CONC 33.3 g/dL (32.4-35.8); MEAN PLATELET VOLUME 9.6 fL (7.4-10.4); MONOCYTES % (AUTO) 10 % (2-9); NEUTROPHILS % (AUTO) 75 % (42-75); PLATELET COUNT 173 x10^3/uL (130-400); RED BLOOD COUNT 2.76 x10^6/uL (3.82-5.3); RED CELL DISTRIBUTION WIDTH 15.3 % (9.6-15.2)
[2020-08-01 05:36] LABS: MD NO
[2020-08-01] MEDS: RIFAXIMIN 200 MG TABLET PO SCH (08:16)
[2020-08-01] MEDS: LACTOBACILLUS CHEW TABLET PO SCH (08:16)
[2020-08-01] MEDS: morphine SULFATE 10 MG/ML, 1ML IVPush PRN ×2 (08:16→12:36)
[2020-08-01] MEDS: PANTOPRAZOLE 40MG TABLET PO SCH (08:17)
[2020-08-01] MEDS: FUROSEMIDE 20 MG TABLET PO SCH (08:17)
[2020-08-01] MEDS: SENNA/DOCUSATE TABLET PO SCH (08:17)
[2020-08-01] MEDS: METHADONE 40 MG TABLET.SOL PO SCH (08:17)
[2020-08-01] MEDS: SPIRONOLACTONE 25 MG TABLET PO SCH (08:17)
[2020-08-01 08:30] VITALS: BP 105/73
[2020-08-01] MEDS ORDERED: AMOX1TAB64 PO (09:55)
[2020-08-01] MEDS ORDERED: ACID1TAB7 PO (09:55)
== END 2020-08-01 15:48 | disposition home or self-care (01) | DRG 720 ==
LOC: ED 16:28 → EDIP 19:03 → 4NW 20:04
PROVIDERS: ADMIT Family Medicine; ATTEND Family Medicine
PROC: BF101ZZ Fluoroscopy of Bile Ducts using Low Osmolar Contrast (ICD-10-PCS; 2020-07-30)
PROC: 0DJ08ZZ Inspection of Upper Intestinal Tract, Via Natural or Artificial Opening Endoscopic (ICD-10-PCS; 2020-07-30)
PROC: 0FC98ZZ Extirpation of Matter from Common Bile Duct, Via Natural or Artificial Opening Endoscopic (ICD-10-PCS; principal; 2020-07-30 09:00)
DX: A41.9 Sepsis, unspecified organism (principal); B96.89 Other specified bacterial agents as the cause of diseases classified elsewhere; Z20.828 Contact with and (suspected) exposure to other viral communicable diseases; D75.89 Other specified diseases of blood and blood-forming organs; E87.6 Hypokalemia; F10.10 Alcohol abuse, uncomplicated; F15.10 Other stimulant abuse, uncomplicated; F17.210 Nicotine dependence, cigarettes, uncomplicated; K72.10 Chronic hepatic failure without coma; K80.50 Calculus of bile duct without cholangitis or cholecystitis without obstruction; K85.90 Acute pancreatitis without necrosis or infection, unspecified; G89.29 Other chronic pain; K86.3 Pseudocyst of pancreas; D72.829 Elevated white blood cell count, unspecified; K86.89 Other specified diseases of pancreas; Z80.0 Family history of malignant neoplasm of digestive organs; Z98.51 Tubal ligation status; Z80.1 Family history of malignant neoplasm of trachea, bronchus and lung; Z79.899 Other long term (current) drug therapy; Z88.1 Allergy status to other antibiotic agents; Z79.01 Long term (current) use of anticoagulants
CPT/HCPCS: 36415; 36573; 71046; 74181; 74328; 80048; 80053; 80202; 80307; 81003; 82140; 82607; 83605; 83690; 83735; 85025; 85610; 85730; 87040; 87635; 93005; 93306; 93970; 96365; 96375; 96376; G0378; J0690; J1100; J1644; J2250; J2405; J2543; J2704; J2710; J3010; J3370; Q9967; C1751; C1769; J2270; J3475; J7030; J7050

== ENCOUNTER → 2020-08-30 | Outpatient (CLI) | payer MEDICAID ==
[~2020-08-30] MED LIST changes: +ACID1TAB7 PO; +AMOX1TAB64 PO; +LACT10SO28 PO; +MULT-658 PO; +SPIR25TA5 PO
[2020-08-30 16:23] LABS: BASOPHILS % (AUTO) 1 % (0-1); EOSINOPHILS % (AUTO) 2 % (1-7); INTERNATIONAL NORMALIZED RATIO 1.11 (0.93-1.1); LYMPHOCYTES % (AUTO) 24 % (22-44); MEAN CORPUSCULAR HEMOGLOBIN 32.3 pg (27.0-34.8); MEAN CORPUSCULAR HGB CONC 34.4 g/dL (32.4-35.8); MEAN PLATELET VOLUME 9.3 fL (7.4-10.4); MONOCYTES % (AUTO) 7 % (2-9); NEUTROPHILS % (AUTO) 67 % (42-75); PLATELET COUNT 246 x10^3/uL (130-400); PROTHROMBIN TIME 11.8 Seconds (9.6-11.5); RED BLOOD COUNT 4.29 x10^6/uL (3.82-5.3); RED CELL DISTRIBUTION WIDTH 15.4 % (9.6-15.2)
[2020-08-30 16:24] LABS: ALBUMIN 3.3 g/dL (3.4-5.0); ANION GAP 9 mmol/L (5-15); CALCIUM 9.2 mg/dL (8.5-10.1); CHLORIDE 97 mmol/L (98-107)
[2020-08-30 16:26] LABS: MD NO
[2020-08-30 16:27] LABS: ALANINE AMINOTRANSFERASE 33 U/L (12-78); ALKALINE PHOSPHATASE 193 U/L (45-117); BILIRUBIN,TOTAL 0.8 mg/dL (0.2-1.0); CREATININE 0.77 mg/dL (0.55-1.02)
== END | disposition home or self-care (01) ==
LOC: STAR 14:02
PROVIDERS: ATTEND Internal Medicine
DX: Z01.812 Encounter for preprocedural laboratory examination (principal); K86.2 Cyst of pancreas; Z20.828 Contact with and (suspected) exposure to other viral communicable diseases
CPT/HCPCS: 80053; 85025; 85610; 85730; 87635

== ENCOUNTER 2020-09-05 07:01 | Day surgery (SDC) | payer MEDICAID ==
[2020-09-04 13:28] LABS: ALANINE AMINOTRANSFERASE 28 U/L (12-78); ALBUMIN 2.9 g/dL (3.4-5.0); ANION GAP 8 mmol/L (5-15); CALCIUM 8.8 mg/dL (8.5-10.1); CHLORIDE 99 mmol/L (98-107); CREATININE 0.71 mg/dL (0.55-1.02)
[2020-09-04 13:30] LABS: ALKALINE PHOSPHATASE 171 U/L (45-117); BILIRUBIN,TOTAL 0.5 mg/dL (0.2-1.0)
[~2020-09-05] VITALS: Ht 154.9 cm; Wt 67.6 kg
[2020-09-05 07:23] VITALS: BP 120/82
[2020-09-05] MEDS ORDERED: LACTATED RINGERS 1,000 ML IV SCH (07:30)
[2020-09-05] MEDS ORDERED: CHLORHEXIDINE 15 ML UDC MM ONE (07:30)
[2020-09-05] MEDS ORDERED: MIDAZOLAM 1 MG/ML, 2ML ONE (08:14)
[2020-09-05] MEDS ORDERED: FENTANYL PF 100 MCG/2ML IV PRN (08:30)
[2020-09-05] MEDS ORDERED: ONDANSETRON 2MG/ML, 2ML IVPush PRN (08:30)
[2020-09-05] MEDS ORDERED: PROPOFOL 10 MG/ML, 20ML ONE (08:45)
== END 2020-09-05 11:45 | disposition home or self-care (01) ==
LOC: OUT 07:01
PROVIDERS: ATTEND Internal Medicine
DX: R94.5 Abnormal results of liver function studies (principal); I85.00 Esophageal varices without bleeding; K76.6 Portal hypertension; K31.89 Other diseases of stomach and duodenum; K76.89 Other specified diseases of liver; F11.90 Opioid use, unspecified, uncomplicated; F17.210 Nicotine dependence, cigarettes, uncomplicated; Z88.1 Allergy status to other antibiotic agents; Z79.899 Other long term (current) drug therapy; Z72.89 Other problems related to lifestyle; Z98.890 Other specified postprocedural states; Z82.49 Family history of ischemic heart disease and other diseases of the circulatory system
CPT/HCPCS: 36415; 43259; 80053; J2704; J7120; J2250

== ENCOUNTER 2020-12-30 00:43 | Emergency (ER) | payer MEDICAID ==
[~2020-12-30] VITALS: Ht 154.9 cm; Wt 65.0 kg
[2020-12-30 01:11] VITALS: BP 134/85
--- NOTE | 2020-12-30 01:13 | NUR ---
Patient BIBA c/o right side ext muscle weakness. Neg stroke scale. Patient states she has a hx of liver failure. +ETOH today; "a lot." EMS reports patient also had a fall x4 hours ago; denies LOC. Patient states she has been constipated x5 days and has rectal pain with it.
[2020-12-30 01:43] LABS: MICROSCOPIC NOT IND
--- NOTE | 2020-12-30 01:44 | NUR ---
LAB AT BEDSIDE
[2020-12-30 01:55] LABS: BASOPHILS % (AUTO) 1 % (0-1); EOSINOPHILS % (AUTO) 1 % (1-7); LYMPHOCYTES % (AUTO) 25 % (22-44); MEAN CORPUSCULAR HEMOGLOBIN 32.5 pg (27.0-34.8); MEAN CORPUSCULAR HGB CONC 33.9 g/dL (32.4-35.8); MONOCYTES % (AUTO) 10 % (2-9); NEUTROPHILS % (AUTO) 64 % (42-75); PLATELET COUNT 189 x10^3/uL (130-400); RED BLOOD COUNT 4.99 x10^6/uL (3.82-5.3); RED CELL DISTRIBUTION WIDTH 16.3 % (9.6-15.2)
[2020-12-30 01:56] LABS: MD NO
[2020-12-30 02:07] LABS: ALANINE AMINOTRANSFERASE 89 U/L (12-78); ALBUMIN 3.3 g/dL (3.4-5.0); ANION GAP 10 mmol/L (5-15); CALCIUM 8.6 mg/dL (8.5-10.1); CHLORIDE 106 mmol/L (98-107); CREATININE 0.61 mg/dL (0.55-1.02)
[2020-12-30 02:09] LABS: ALKALINE PHOSPHATASE 254 U/L (45-117); BILIRUBIN,TOTAL 1.6 mg/dL (0.2-1.0); TOTAL PROTEIN 7.3 g/dL (6.4-8.2)
[2020-12-30] MEDS ORDERED: POTASSIUM CHLORIDE 20 MEQ TAB.ER.PRT ONE (02:16)
[2020-12-30] MEDS ORDERED: ONDANSETRON 2MG/ML, 2ML ONE (02:16)
--- NOTE | 2020-12-30 02:23 | NUR ---
Patient nauseous. Admin meds per mar. PO challenge to be performed after Zofran and K+ to be admin per oct.
[2020-12-30] MEDS ORDERED: ONDANSETRON 2MG/ML, 2ML IVPush ONE (02:30)
[2020-12-30] MEDS ORDERED: POTASSIUM CHLORIDE 20 MEQ TAB.ER.PRT PO ONE (02:30)
--- NOTE | 2020-12-30 02:33 | NUR ---
Patient states nausea has improved. Admin K+ per oct.
== END 2020-12-30 03:25 | disposition home or self-care (01) ==
LOC: ED 01:13
DX: R11.2 Nausea with vomiting, unspecified (principal); R53.1 Weakness; E87.6 Hypokalemia; F17.210 Nicotine dependence, cigarettes, uncomplicated
CPT/HCPCS: 36415; 71045; 80053; 81003; 82140; 83690; 85025; 96374; 99284; 99406; J2405

== ENCOUNTER 2021-01-12 13:44 | Inpatient (IN) | payer MEDICAID ==
[~2021-01-12] VITALS: Ht 154.9 cm; Wt 74.9 kg
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
[2021-01-12 14:20] LABS: BASOPHILS % (AUTO) 1 % (0-1); EOSINOPHILS % (AUTO) 1 % (1-7); LYMPHOCYTES % (AUTO) 19 % (22-44); MEAN CORPUSCULAR HEMOGLOBIN 33.4 pg (27.0-34.8); MEAN CORPUSCULAR HGB CONC 33.7 g/dL (32.4-35.8); MONOCYTES % (AUTO) 13 % (2-9); NEUTROPHILS % (AUTO) 66 % (42-75); PLATELET COUNT 254 x10^3/uL (130-400); RED BLOOD COUNT 4.02 x10^6/uL (3.82-5.3); RED CELL DISTRIBUTION WIDTH 16.9 % (9.6-15.2)
[2021-01-12 14:32] LABS: ALANINE AMINOTRANSFERASE 128 U/L (12-78); ANION GAP 10 mmol/L (5-15); CALCIUM 8.2 mg/dL (8.5-10.1); CHLORIDE 98 mmol/L (98-107)
[2021-01-12 14:34] LABS: ALKALINE PHOSPHATASE 297 U/L (45-117); BILIRUBIN,TOTAL 1.5 mg/dL (0.2-1.0); CREATININE 0.87 mg/dL (0.55-1.02); TOTAL PROTEIN 6.8 g/dL (6.4-8.2)
[2021-01-12 14:57] LABS: MD SCAN
[2021-01-12] MEDS ORDERED: POTASSIUM CHLORIDE 20 MEQ TAB.ER.PRT ONE (15:23)
[2021-01-12] MEDS ORDERED: NS + 40MEQ KCL 1,000 ML IV ONE (15:23)
[2021-01-12] MEDS ORDERED: POTASSIUM CHLORIDE 20 MEQ TAB.ER.PRT PO ONE (15:30)
[2021-01-12] MEDS ORDERED: ONDANSETRON ODT 4 MG PO PRN (16:00)
[2021-01-12] MEDS ORDERED: POTASSIUM CHLORIDE 20 MEQ in LACTATED RINGERS 1,000 ML IV SCH (16:00)
[2021-01-12] MEDS ORDERED: ONDANSETRON 2MG/ML, 2ML IVPush PRN (16:00)
[2021-01-12] MEDS ORDERED: POTASSIUM CHLORIDE 40 MEQ in SODIUM CHLORIDE 0.9% 500 ML IV ONE (16:00)
[2021-01-12] MEDS ORDERED: LORazepam 1MG TABLET PO PRN (16:30)
[2021-01-12] MEDS ORDERED: LORazepam 2 MG/ML, 1ML IV PRN ×4 (16:30)
[2021-01-12] MEDS ORDERED: SODIUM CHLORIDE FLUSH 10ML SYR IVF PRN (16:30)
[2021-01-12] MEDS ORDERED: POTASSIUM CHLORIDE 20 MEQ, MAGNESIUM SULFATE 1 GM, THIAMINE 200 MG, FOLIC ACID 1 MG, MV... IV ONE (16:30)
[2021-01-12 17:18] LABS: ANION GAP 7 mmol/L (5-15); CHLORIDE 99 mmol/L (98-107); CREATININE 0.66 mg/dL (0.55-1.02)
[2021-01-12 20:05] VITALS: BP 104/69
[2021-01-12] MEDS: DIAZEPAM 10 MG TABLET PO SCH (20:49)
[2021-01-12 21:41] LABS: AMPHETAMINE SCREEN, URINE Positive (Negative); BARBITURATE SCREEN, URINE Negative (Negative); BENZODIAZEPINE SCREEN, URINE Negative (Negative); CANNABINOID SCREEN, URINE Negative (Negative); COCAINE SCREEN, URINE Negative (Negative); METHADONE SCREEN, URINE Negative (Negative); OPIATE SCREEN, URINE Negative (Negative)
[2021-01-12] MEDS ORDERED: FLUO20CA19 PO (22:08)
[2021-01-12] MEDS ORDERED: ALPR0.5T PO (22:08)
[2021-01-12] MEDS ORDERED: GABA-826 PO (22:08)
[2021-01-12] MEDS: RIFAXIMIN 200 MG TABLET PO SCH (23:06)
[2021-01-12] MEDS: LACTULOSE 10 GM/15 ML UDC PO SCH (23:06)
[2021-01-12] MEDS: GABAPENTIN 100 MG CAPSULE PO SCH (23:06)
[2021-01-13 01:38] VITALS: BP 118/75
[2021-01-13] MEDS: DIAZEPAM 10 MG TABLET PO SCH ×3 (02:49→15:00)
[2021-01-13 06:11] LABS: BASOPHILS % (AUTO) 1 % (0-1); EOSINOPHILS % (AUTO) 1 % (1-7); LYMPHOCYTES % (AUTO) 12 % (22-44); MEAN CORPUSCULAR HEMOGLOBIN 33.3 pg (27.0-34.8); MEAN PLATELET VOLUME 9.2 fL (7.4-10.4); MONOCYTES % (AUTO) 11 % (2-9); NEUTROPHILS % (AUTO) 75 % (42-75); PLATELET COUNT 218 x10^3/uL (130-400); RED BLOOD COUNT 3.86 x10^6/uL (3.82-5.3); RED CELL DISTRIBUTION WIDTH 17.1 % (9.6-15.2)
[2021-01-13 06:12] LABS: MD NO
[2021-01-13 06:15] LABS: CHLORIDE 95 mmol/L (98-107)
[2021-01-13 06:21] LABS: ANION GAP 9 mmol/L (5-15); CALCIUM 8.3 mg/dL (8.5-10.1); CREATININE 0.62 mg/dL (0.55-1.02)
[2021-01-13] MEDS ORDERED: MAGNESIUM SULFATE PMX 2GM/50ML 50 ML IV ONE (07:00)
[2021-01-13] MEDS ORDERED: NS + 40MEQ KCL 1,000 ML IV SCH (07:00)
[2021-01-13 07:06] VITALS: BP 122/69
[2021-01-13] MEDS: LACTULOSE 10 GM/15 ML UDC PO SCH ×3 (08:29→22:10)
[2021-01-13] MEDS: FLUOXETINE HCL 20 MG CAPSULE PO SCH ×2 (08:29→22:11)
[2021-01-13] MEDS: RIFAXIMIN 200 MG TABLET PO SCH ×3 (08:29→22:11)
[2021-01-13] MEDS: GABAPENTIN 100 MG CAPSULE PO SCH ×3 (08:29→22:11)
[2021-01-13] MEDS: LORazepam 1MG TABLET PO PRN ×2 (08:29→13:08)
[2021-01-13] MEDS ORDERED: FUROSEMIDE 40 MG/4 ML IV ONE (09:30)
[2021-01-13] MEDS ORDERED: maalox/diphenh/lido/sucralfate 5 ML PO PRN (09:30)
[2021-01-13] MEDS ORDERED: FLUOXETINE HCL 20 MG CAPSULE PO SCH (09:30)
[2021-01-13] MEDS: AMOXICILLIN/CLAV 875-125MG TABLET PO SCH ×2 (10:15→22:10)
[2021-01-13] MEDS: ENOXAPARIN 40 MG/0.4 ML SQ SCH (12:00)
[2021-01-13 12:03] VITALS: BP 120/68
[2021-01-13] MEDS: ORAJEL 7GM TUBE MM PRN ×2 (12:17→22:15)
[2021-01-13 13:58] LABS: INTERNATIONAL NORMALIZED RATIO 1.22 (0.93-1.1)
[2021-01-13] MEDS ORDERED: RIFAXIMIN 200 MG TABLET PO SCH (16:00)
[2021-01-13] MEDS ORDERED: GABAPENTIN 100 MG CAPSULE PO SCH (16:00)
[2021-01-13 18:52] VITALS: BP 107/67
[2021-01-13] MEDS: SPIRONOLACTONE 25 MG TABLET PO SCH (22:10)
[2021-01-13] MEDS: DIAZEPAM 5 MG TABLET PO SCH (22:11)
[2021-01-14 00:33] VITALS: BP 118/74
[2021-01-14 05:05] LABS: BASOPHILS % (AUTO) 1 % (0-1); EOSINOPHILS % (AUTO) 2 % (1-7); LYMPHOCYTES % (AUTO) 15 % (22-44); MD NO; MEAN CORPUSCULAR HEMOGLOBIN 34.2 pg (27.0-34.8); MEAN CORPUSCULAR HGB CONC 34.4 g/dL (32.4-35.8); MEAN PLATELET VOLUME 9.5 fL (7.4-10.4); MONOCYTES % (AUTO) 10 % (2-9); NEUTROPHILS % (AUTO) 72 % (42-75); PLATELET COUNT 200 x10^3/uL (130-400); RED BLOOD COUNT 3.84 x10^6/uL (3.82-5.3); RED CELL DISTRIBUTION WIDTH 17.8 % (9.6-15.2)
[2021-01-14 05:11] LABS: CHLORIDE 95 mmol/L (98-107)
[2021-01-14 05:17] LABS: ALANINE AMINOTRANSFERASE 126 U/L (12-78); ALBUMIN 2.9 g/dL (3.4-5.0); ALKALINE PHOSPHATASE 332 U/L (45-117); ANION GAP 6 mmol/L (5-15); BILIRUBIN,TOTAL 3.4 mg/dL (0.2-1.0); CALCIUM 8.8 mg/dL (8.5-10.1); CREATININE 0.68 mg/dL (0.55-1.02); TOTAL PROTEIN 6.5 g/dL (6.4-8.2)
[2021-01-14 06:48] VITALS: BP 110/75
[2021-01-14] MEDS: FLUOXETINE HCL 20 MG CAPSULE PO SCH ×2 (08:21→21:12)
[2021-01-14] MEDS: THIAMINE 100MG TABLET PO SCH (08:21)
[2021-01-14] MEDS: LACTULOSE 10 GM/15 ML UDC PO SCH ×3 (08:21→21:12)
[2021-01-14] MEDS: PANTOPRAZOLE 40MG TABLET PO SCH (08:21)
[2021-01-14] MEDS: RIFAXIMIN 200 MG TABLET PO SCH ×3 (08:21→21:12)
[2021-01-14] MEDS: MULTIVITAMIN 1 TABLET PO SCH (08:22)
[2021-01-14] MEDS: GABAPENTIN 100 MG CAPSULE PO SCH ×3 (08:22→21:12)
[2021-01-14] MEDS: SPIRONOLACTONE 25 MG TABLET PO SCH ×2 (08:22→21:12)
[2021-01-14] MEDS: AMOXICILLIN/CLAV 875-125MG TABLET PO SCH ×2 (08:22→21:12)
[2021-01-14] MEDS: FUROSEMIDE 20 MG TABLET PO SCH (08:23)
[2021-01-14] MEDS: DIAZEPAM 5 MG TABLET PO SCH ×4 (08:23→20:30)
[2021-01-14] MEDS: ENOXAPARIN 40 MG/0.4 ML SQ SCH (12:00)
[2021-01-14 12:13] VITALS: BP 108/65
[2021-01-14] MEDS ORDERED: POTASSIUM CHLORIDE 20 MEQ TAB.ER.PRT PO ONE (12:30)
[2021-01-14 19:50] VITALS: BP 113/69
[2021-01-15 02:00] VITALS: BP 119/75
[2021-01-15] MEDS: DIAZEPAM 5 MG TABLET PO SCH ×3 (04:30→16:36)
[2021-01-15 06:04] LABS: CHLORIDE 98 mmol/L (98-107)
[2021-01-15 06:18] LABS: ALANINE AMINOTRANSFERASE 101 U/L (12-78); ALBUMIN 2.4 g/dL (3.4-5.0); ALKALINE PHOSPHATASE 336 U/L (45-117); ANION GAP 6 mmol/L (5-15); BILIRUBIN,TOTAL 2.6 mg/dL (0.2-1.0); CALCIUM 8.3 mg/dL (8.5-10.1); CREATININE 0.78 mg/dL (0.55-1.02)
[2021-01-15 06:51] VITALS: BP 112/76
[2021-01-15 07:01] LABS: BASOPHILS % (AUTO) 1 % (0-1); EOSINOPHILS % (AUTO) 2 % (1-7); LYMPHOCYTES % (AUTO) 17 % (22-44); MEAN CORPUSCULAR HEMOGLOBIN 33.6 pg (27.0-34.8); MEAN CORPUSCULAR HGB CONC 33.6 g/dL (32.4-35.8); MEAN PLATELET VOLUME 8.8 fL (7.4-10.4); MONOCYTES % (AUTO) 9 % (2-9); NEUTROPHILS % (AUTO) 71 % (42-75); PLATELET COUNT 205 x10^3/uL (130-400); RED BLOOD COUNT 3.67 x10^6/uL (3.82-5.3); RED CELL DISTRIBUTION WIDTH 17.9 % (9.6-15.2)
[2021-01-15 07:09] LABS: MD NO
[2021-01-15] MEDS: LACTULOSE 10 GM/15 ML UDC PO SCH ×3 (08:50→20:34)
[2021-01-15] MEDS: RIFAXIMIN 200 MG TABLET PO SCH ×3 (08:51→20:34)
[2021-01-15] MEDS: PANTOPRAZOLE 40MG TABLET PO SCH (08:51)
[2021-01-15] MEDS: THIAMINE 100MG TABLET PO SCH (08:51)
[2021-01-15] MEDS: FLUOXETINE HCL 20 MG CAPSULE PO SCH ×2 (08:51→20:34)
[2021-01-15] MEDS: MULTIVITAMIN 1 TABLET PO SCH (08:51)
[2021-01-15] MEDS: SPIRONOLACTONE 25 MG TABLET PO SCH ×2 (08:51→20:34)
[2021-01-15] MEDS: FUROSEMIDE 20 MG TABLET PO SCH (08:51)
[2021-01-15] MEDS: AMOXICILLIN/CLAV 875-125MG TABLET PO SCH ×2 (08:51→20:34)
[2021-01-15] MEDS: GABAPENTIN 100 MG CAPSULE PO SCH ×3 (08:51→20:34)
[2021-01-15 12:05] VITALS: BP 112/70
[2021-01-15] MEDS: ENOXAPARIN 40 MG/0.4 ML SQ SCH (12:25)
[2021-01-15] MEDS ORDERED: AMOX1TAB12 PO (15:31)
[2021-01-15 18:56] VITALS: BP 108/69
[2021-01-15] MEDS: LORazepam 1MG TABLET PO PRN (20:41)
[2021-01-15] MEDS: ORAJEL 7GM TUBE MM PRN (20:41)
[2021-01-16] MEDS: DIAZEPAM 5 MG TABLET PO SCH ×2 (01:12→08:04)
[2021-01-16 02:00] VITALS: BP 101/62
[2021-01-16 05:19] LABS: BASOPHILS % (AUTO) 0 % (0-1); EOSINOPHILS % (AUTO) 2 % (1-7); LYMPHOCYTES % (AUTO) 16 % (22-44); MEAN CORPUSCULAR HEMOGLOBIN 33.8 pg (27.0-34.8); MEAN CORPUSCULAR HGB CONC 33.6 g/dL (32.4-35.8); MONOCYTES % (AUTO) 8 % (2-9); NEUTROPHILS % (AUTO) 74 % (42-75); PLATELET COUNT 198 x10^3/uL (130-400); RED BLOOD COUNT 3.58 x10^6/uL (3.82-5.3); RED CELL DISTRIBUTION WIDTH 18.6 % (9.6-15.2)
[2021-01-16 05:20] LABS: MD NO
[2021-01-16 05:25] LABS: CHLORIDE 97 mmol/L (98-107)
[2021-01-16 05:32] LABS: ALANINE AMINOTRANSFERASE 72 U/L (12-78); ALBUMIN 2.5 g/dL (3.4-5.0); ALKALINE PHOSPHATASE 294 U/L (45-117); ANION GAP 4 mmol/L (5-15); BILIRUBIN,TOTAL 2.1 mg/dL (0.2-1.0); CREATININE 0.73 mg/dL (0.55-1.02)
[2021-01-16 06:59] VITALS: BP 117/77
[2021-01-16] MEDS: PANTOPRAZOLE 40MG TABLET PO SCH (08:04)
[2021-01-16] MEDS: FLUOXETINE HCL 20 MG CAPSULE PO SCH (08:04)
[2021-01-16] MEDS: MULTIVITAMIN 1 TABLET PO SCH (08:04)
[2021-01-16] MEDS: SPIRONOLACTONE 25 MG TABLET PO SCH (08:04)
[2021-01-16] MEDS: GABAPENTIN 100 MG CAPSULE PO SCH (08:04)
[2021-01-16] MEDS: THIAMINE 100MG TABLET PO SCH (08:04)
[2021-01-16] MEDS: AMOXICILLIN/CLAV 875-125MG TABLET PO SCH (08:04)
[2021-01-16] MEDS: RIFAXIMIN 200 MG TABLET PO SCH (08:04)
[2021-01-16] MEDS: LACTULOSE 10 GM/15 ML UDC PO SCH (08:05)
[2021-01-16] MEDS: FUROSEMIDE 20 MG TABLET PO SCH (08:05)
[2021-01-16] MEDS ORDERED: POTASSIUM CHLORIDE 20 MEQ TAB.ER.PRT PO ONE (08:30)
[2021-01-16] MEDS: ENOXAPARIN 40 MG/0.4 ML SQ SCH (11:19)
[2021-01-16 12:38] VITALS: BP 104/70
== END 2021-01-16 15:24 | disposition home or self-care (01) | DRG 432 ==
LOC: ED 14:40 → EDIP 15:32 → SUATTDRO 15:33 → 4WST 19:48 → DCLOUNGE 01-16 15:18
PROVIDERS: ADMIT Hospitalist; ATTEND Internal Medicine
DX: K70.11 Alcoholic hepatitis with ascites (principal); E43 Unspecified severe protein-calorie malnutrition; E87.1 Hypo-osmolality and hyponatremia; F10.221 Alcohol dependence with intoxication delirium; F10.239 Alcohol dependence with withdrawal, unspecified; D72.829 Elevated white blood cell count, unspecified; Z68.31 Body mass index [BMI] 31.0-31.9, adult; E83.42 Hypomagnesemia; E87.6 Hypokalemia; F15.10 Other stimulant abuse, uncomplicated; K70.31 Alcoholic cirrhosis of liver with ascites; R09.02 Hypoxemia; Z59.0 Homelessness; Z91.19 Patient's noncompliance with other medical treatment and regimen
CPT/HCPCS: 36415; 71045; 76705; 80048; 80053; 80307; 80320; 83690; 83735; 84100; 85025; 85610; 93005; 96374; G0378; J1650; J1940; J3480; G0480; J3475; J7040; J7120

== ENCOUNTER 2021-03-05 15:51 | Emergency (ER) | payer MEDICAID ==
[~2021-03-05] VITALS: Ht 154.9 cm; Wt 67.7 kg
[~2021-03-05 15:51] MED LIST changes: +ALPR0.5T PO; +AMOX1TAB12 PO; +FLUO20CA19 PO; +GABA-826 PO
--- NOTE | 2021-03-05 16:35 | NUR ---
PT AMBULATORY TO ROOM FROM TRIAGE, PT CHANGED INTO GOWN. MONITORS IN PLACE. PT C/O BITE THAT OCCURED LAST NIGHT. PT STATES LEG FEELS TIGHT AND PAINFUL. ERYTHMA NOTED WITH DRAINAGE ON CALF.
--- NOTE | 2021-03-05 17:04 | NUR ---
PT SLEEPING ON GURNEY, RESPIRATIONS EVEN AND UNLABORED. NADN/VSS. CALL LIGHT WITHIN REACH. NO NEEDS AT THIS TIME
--- NOTE | 2021-03-05 17:08 | NUR ---
ERP AT BS
[2021-03-05] MEDS ORDERED: CEFTRIAXONE 1,000 MG in DEXTROSE 5% 50 ML IVPB ONE (17:30)
[2021-03-05] MEDS ORDERED: SULFAMETH./TRIMETHOPRIM DS 800MG/160MG TABLET PO ONE (17:30)
--- NOTE | 2021-03-05 17:31 | NUR ---
PIV PLACED, ONE SET OF BLOOD CULTURES DRAWN. AWAITING LAB FOR 2ND CULTURE
[2021-03-05] MEDS ORDERED: SULFAMETH./TRIMETHOPRIM DS 800MG/160MG TABLET ONE (17:55)
--- NOTE | 2021-03-05 17:57 | NUR ---
LAB AT BS, 2ND BLOOD CULTURE DRAWN
--- NOTE | 2021-03-05 18:00 | NUR ---
ANTIBX STARTED, PT MEDICATED PER EMAR
[2021-03-05 18:27] LABS: ALANINE AMINOTRANSFERASE 39 U/L (12-78); ALBUMIN 2.8 g/dL (3.4-5.0); ANION GAP 8 mmol/L (5-15); CALCIUM 8.3 mg/dL (8.5-10.1); CHLORIDE 105 mmol/L (98-107); CREATININE 0.57 mg/dL (0.55-1.02)
[2021-03-05 18:29] LABS: ALKALINE PHOSPHATASE 151 U/L (45-117); BILIRUBIN,TOTAL 0.5 mg/dL (0.2-1.0); TOTAL PROTEIN 6.5 g/dL (6.4-8.2)
[2021-03-05 18:31] LABS: BASOPHILS % (AUTO) 1 % (0-1); EOSINOPHILS % (AUTO) 5 % (1-7); LYMPHOCYTES % (AUTO) 28 % (22-44); MEAN CORPUSCULAR HEMOGLOBIN 35.5 pg (27.0-34.8); MEAN CORPUSCULAR HGB CONC 34.4 g/dL (32.4-35.8); MEAN PLATELET VOLUME 9.2 fL (7.4-10.4); MONOCYTES % (AUTO) 8 % (2-9); NEUTROPHILS % (AUTO) 58 % (42-75); PLATELET COUNT 190 x10^3/uL (130-400); RED BLOOD COUNT 3.78 x10^6/uL (3.82-5.3); RED CELL DISTRIBUTION WIDTH 13.5 % (9.6-15.2)
--- NOTE | 2021-03-05 18:57 | NUR ---
REPORT TO UGO KERNS
[2021-03-05 19:32] VITALS: BP 103/61
== END 2021-03-05 19:56 | disposition home or self-care (01) ==
LOC: ED 16:21
DX: L03.116 Cellulitis of left lower limb (principal); F15.129 Other stimulant abuse with intoxication, unspecified; Z72.9 Problem related to lifestyle, unspecified
CPT/HCPCS: 36415; 80053; 85025; 87040; 93971; 96365; 99284; J0696

== ENCOUNTER 2021-04-03 19:17 | Emergency (ER) | payer MEDICAID ==
[~2021-04-03] VITALS: Ht 154.9 cm; Wt 64.6 kg
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
[2021-04-03] MEDS ORDERED: ONDANSETRON 2MG/ML, 2ML IVPush ONE (21:30)
[2021-04-03] MEDS ORDERED: HYDROmorphone 1 MG/ML, 1ML INJ IV ONE (21:30)
[2021-04-03] MEDS ORDERED: ONDANSETRON 2MG/ML, 2ML ONE (21:31)
[2021-04-03] MEDS ORDERED: HYDROmorphone 2 MG/ML, 1ML ONE (21:31)
--- NOTE | 2021-04-03 21:43 | NUR ---
IV ESTABLISHED, LABS DRAWN. PT MEDICATED PER EMAR FOR PAIN
[2021-04-03 22:22] LABS: BASOPHILS % (AUTO) 1 % (0-1); EOSINOPHILS % (AUTO) 5 % (1-7); LYMPHOCYTES % (AUTO) 26 % (22-44); MEAN CORPUSCULAR HEMOGLOBIN 34.3 pg (27.0-34.8); MEAN CORPUSCULAR HGB CONC 34.2 g/dL (32.4-35.8); MEAN PLATELET VOLUME 9.4 fL (7.4-10.4); MONOCYTES % (AUTO) 11 % (2-9); NEUTROPHILS % (AUTO) 57 % (42-75); PLATELET COUNT 175 x10^3/uL (130-400); RED BLOOD COUNT 4.73 x10^6/uL (3.82-5.3)
--- NOTE | 2021-04-03 23:18 | NUR ---
PT RESTING IN GURNEY W EYES CLOSED. EVEN/REGULAR RESPIRATIONS NOTED. SPO2 >90% ON 2L O2 BY NC FOR SUPPORT FOLLOWING MEDICATIONS.
[2021-04-03 23:41] LABS: CHLORIDE 100 mmol/L (98-107)
[2021-04-03 23:58] LABS: ALANINE AMINOTRANSFERASE 71 U/L (12-78); ALBUMIN 3.7 g/dL (3.4-5.0); ALKALINE PHOSPHATASE 119 U/L (45-117); ANION GAP 14 mmol/L (5-15); BILIRUBIN,TOTAL 0.8 mg/dL (0.2-1.0); CALCIUM 9.5 mg/dL (8.5-10.1); CREATININE 0.82 mg/dL (0.55-1.02); TOTAL PROTEIN 7.9 g/dL (6.4-8.2)
--- NOTE | 2021-04-04 00:36 | NUR ---
DC EDUCATION PROVIDED, PT DEMONSTRATES UNDERSTANDING. PT AMBULATED STEADILY TO DC WITH RN. SON TO TRANSPORT PT HOME.
[2021-04-04 00:37] VITALS: BP 110/60
== END 2021-04-04 00:39 | disposition home or self-care (01) ==
LOC: ED 21:19
DX: K42.9 Umbilical hernia without obstruction or gangrene (principal); R11.2 Nausea with vomiting, unspecified; F17.200 Nicotine dependence, unspecified, uncomplicated; Z88.1 Allergy status to other antibiotic agents
CPT/HCPCS: 36415; 80053; 83605; 83690; 85025; 96374; 96375; 99285; J1170; J2405

== ENCOUNTER 2021-05-05 11:33 | Inpatient (IN) | payer MEDICAID ==
[~2021-05-05] VITALS: Ht 162.6 cm; Wt 71.7 kg
--- NOTE | 2021-05-05 11:48 | NUR ---
PT TO ROOM FROM TRIAGE, CHANGED INTO GOWN, MONITORS IN PLACE. PT C/O SOB FOR 1 WEEK WITH A COUGH & CHILLS. PT STATES SHE [facility] AT [facility] AND THEY TAKE HER TEMPERATURE AND IT HAS BEEN 93-94 F. CALL LIGHT WITHIN REACH, BED IN LOWEST POSITION, BED RAILS UP X2. COMFORT MEASURES PROVIDED.
--- NOTE | 2021-05-05 11:57 | NUR ---
ERP AT BS FOR EVAL
[2021-05-05] MEDS ORDERED: SODIUM CHLORIDE FLUSH 10ML SYR IVF ONE (12:00)
--- NOTE | 2021-05-05 12:21 | NUR ---
XRAY AT BS
[2021-05-05 12:32] LABS: BASOPHILS % (AUTO) 0 % (0-1); EOSINOPHILS % (AUTO) 0 % (1-7); LYMPHOCYTES % (AUTO) 16 % (22-44); MEAN CORPUSCULAR HEMOGLOBIN 32.6 pg (27.0-34.8); MEAN CORPUSCULAR HGB CONC 33.9 g/dL (32.4-35.8); MONOCYTES % (AUTO) 11 % (2-9); NEUTROPHILS % (AUTO) 73 % (42-75); PLATELET COUNT 150 x10^3/uL (130-400); RED BLOOD COUNT 4.85 x10^6/uL (3.82-5.3); RED CELL DISTRIBUTION WIDTH 13.2 % (9.6-15.2)
[2021-05-05 12:43] LABS: ALANINE AMINOTRANSFERASE 50 U/L (12-78); ALBUMIN 3.6 g/dL (3.4-5.0); ANION GAP 9 mmol/L (5-15); CALCIUM 8.9 mg/dL (8.5-10.1); CHLORIDE 104 mmol/L (98-107); CREATININE 0.57 mg/dL (0.55-1.02)
--- NOTE | 2021-05-05 12:45 | NUR ---
PT PLACED ON 2L NC D/T SPO2 83%
[2021-05-05 12:48] LABS: ALKALINE PHOSPHATASE 154 U/L (45-117); BILIRUBIN,TOTAL 0.6 mg/dL (0.2-1.0); TOTAL PROTEIN 7.9 g/dL (6.4-8.2); TROPONIN I < 0.015 ng/mL (0.000-0.045)
[2021-05-05 13:10] LABS: RAPID INFLUENZA A Negative (Negative); RAPID INFLUENZA B Negative (Negative)
--- NOTE | 2021-05-05 13:28 | NUR ---
ERP AT FOR RECHECK
--- NOTE | 2021-05-05 14:56 | NUR ---
REPORT TO KIRILL ARIZMENDI.
[2021-05-05] MEDS ORDERED: ACETAMINOPHEN 325 MG TABLET PO PRN (15:30)
[2021-05-05] MEDS ORDERED: ONDANSETRON ODT 4 MG PO PRN (15:30)
[2021-05-05] MEDS ORDERED: POTASSIUM CHLORIDE 20 MEQ TAB.ER.PRT PO ONE (15:30)
[2021-05-05] MEDS ORDERED: GABAPENTIN 100 MG CAPSULE PO PRN (15:30)
[2021-05-05] MEDS ORDERED: POLYETHYLENE GLYCOL 17 GM PACKET PO PRN (15:30)
[2021-05-05] MEDS ORDERED: ONDANSETRON 2MG/ML, 2ML IVPush PRN (15:30)
[2021-05-05 16:17] VITALS: BP 114/75
[2021-05-05] MEDS: RIFAXIMIN 200 MG TABLET PO SCH ×2 (17:08→20:39)
[2021-05-05] MEDS: HEPARIN 5,000 UNITS/ML, 1ML SQ SCH (17:09)
[2021-05-05] MEDS: CEFTRIAXONE 1,000 MG in DEXTROSE 5% 50 ML IVPB SCH (17:55)
[2021-05-05] MEDS: GUAIFENESIN/DM 200-20MG, 10ML UDC PO PRN (20:38)
[2021-05-05] MEDS: DOXYCYCLINE 100MG TABLET PO SCH (20:39)
[2021-05-05] MEDS: ZINC SULFATE 220 MG CAPSULE PO SCH (20:39)
[2021-05-05] MEDS: ASCORBIC ACID 250 MG TAB PO SCH (20:39)
[2021-05-05] MEDS: SPIRONOLACTONE 25 MG TABLET PO SCH (20:39)
[2021-05-05] MEDS: CHOLECALCIFEROL 5,000u TAB PO SCH (20:39)
[2021-05-05] MEDS: LACTULOSE 10 GM/15 ML UDC PO SCH (20:39)
[2021-05-05 21:17] VITALS: BP 113/64
[2021-05-06] MEDS: HEPARIN 5,000 UNITS/ML, 1ML SQ SCH ×3 (01:34→17:16)
[2021-05-06 02:15] VITALS: BP 116/64
[2021-05-06 07:06] LABS: BASOPHILS % (AUTO) 1 % (0-1); EOSINOPHILS % (AUTO) 2 % (1-7); LYMPHOCYTES % (AUTO) 44 % (22-44); MEAN CORPUSCULAR HEMOGLOBIN 32.3 pg (27.0-34.8); MEAN CORPUSCULAR HGB CONC 33.6 g/dL (32.4-35.8); MEAN PLATELET VOLUME 9.4 fL (7.4-10.4); MONOCYTES % (AUTO) 13 % (2-9); NEUTROPHILS % (AUTO) 41 % (42-75); PLATELET COUNT 133 x10^3/uL (130-400); RED BLOOD COUNT 4.81 x10^6/uL (3.82-5.3); RED CELL DISTRIBUTION WIDTH 13.1 % (9.6-15.2)
[2021-05-06 07:12] LABS: HCT (SEDRATE) 46.3 % (34.6-47.8)
[2021-05-06 07:19] LABS: ALBUMIN 3.2 g/dL (3.4-5.0); ANION GAP 5 mmol/L (5-15); CALCIUM 9.1 mg/dL (8.5-10.1); CHLORIDE 106 mmol/L (98-107)
[2021-05-06 07:26] LABS: ALANINE AMINOTRANSFERASE 44 U/L (12-78); ALKALINE PHOSPHATASE 142 U/L (45-117); BILIRUBIN,TOTAL 0.8 mg/dL (0.2-1.0); C-REACTIVE PROTEIN, QUANT 0.48 mg/dL (0.02-0.49); CREATININE 0.51 mg/dL (0.55-1.02); TOTAL PROTEIN 7.2 g/dL (6.4-8.2)
[2021-05-06 07:50] VITALS: BP 103/66
[2021-05-06] MEDS: DEXAMETHASONE 4 MG/ML, 1ML IVPush SCH (08:58)
[2021-05-06] MEDS: DOXYCYCLINE 100MG TABLET PO SCH ×2 (08:59→20:29)
[2021-05-06] MEDS: SPIRONOLACTONE 25 MG TABLET PO SCH ×2 (08:59→20:29)
[2021-05-06] MEDS: FLUOXETINE HCL 20 MG CAPSULE PO SCH (08:59)
[2021-05-06] MEDS: LACTULOSE 10 GM/15 ML UDC PO SCH ×2 (08:59→20:29)
[2021-05-06] MEDS: ASCORBIC ACID 250 MG TAB PO SCH ×2 (08:59→20:29)
[2021-05-06] MEDS: ZINC SULFATE 220 MG CAPSULE PO SCH (09:00)
[2021-05-06] MEDS: FUROSEMIDE 20 MG TABLET PO SCH (09:00)
[2021-05-06] MEDS: MULTIVITAMIN 1 TABLET PO SCH (09:00)
[2021-05-06] MEDS: PANTOPRAZOLE 40MG TABLET PO SCH (09:00)
[2021-05-06] MEDS: RIFAXIMIN 200 MG TABLET PO SCH ×3 (09:00→20:29)
[2021-05-06] MEDS: METHADONE 40 MG TABLET.SOL PO SCH (09:00)
[2021-05-06] MEDS: CHOLECALCIFEROL 5,000u TAB PO SCH (09:07)
[2021-05-06 12:27] VITALS: BP 134/85
[2021-05-06] MEDS: CEFTRIAXONE 1,000 MG in DEXTROSE 5% 50 ML IVPB SCH (17:16)
[2021-05-06 19:07] VITALS: BP 122/75
[2021-05-06] MEDS: GUAIFENESIN/DM 200-20MG, 10ML UDC PO PRN (20:35)
[2021-05-07] MEDS: HEPARIN 5,000 UNITS/ML, 1ML SQ SCH ×3 (01:02→17:48)
[2021-05-07 01:34] VITALS: BP 117/76
[2021-05-07] MEDS: GUAIFENESIN/DM 200-20MG, 10ML UDC PO PRN (06:25)
[2021-05-07 08:17] VITALS: BP 116/76
[2021-05-07] MEDS: CHOLECALCIFEROL 5,000u TAB PO SCH (09:00)
[2021-05-07] MEDS ORDERED: LACT10SO28 PO (09:20)
[2021-05-07] MEDS ORDERED: FURO20TA3 PO (09:20)
[2021-05-07] MEDS ORDERED: POTA20TA91 PO (09:20)
[2021-05-07] MEDS ORDERED: PANT40TA6 PO (09:20)
[2021-05-07] MEDS: ASCORBIC ACID 250 MG TAB PO SCH ×2 (10:17→19:30)
[2021-05-07] MEDS: FLUOXETINE HCL 20 MG CAPSULE PO SCH (10:17)
[2021-05-07] MEDS: ZINC SULFATE 220 MG CAPSULE PO SCH (10:18)
[2021-05-07] MEDS: PANTOPRAZOLE 40MG TABLET PO SCH (10:18)
[2021-05-07] MEDS: DOXYCYCLINE 100MG TABLET PO SCH ×2 (10:18→19:30)
[2021-05-07] MEDS: RIFAXIMIN 200 MG TABLET PO SCH ×3 (10:18→19:30)
[2021-05-07] MEDS: METHADONE 40 MG TABLET.SOL PO SCH (10:18)
[2021-05-07] MEDS: SPIRONOLACTONE 25 MG TABLET PO SCH ×2 (10:18→19:30)
[2021-05-07] MEDS: MULTIVITAMIN 1 TABLET PO SCH (10:18)
[2021-05-07] MEDS: DEXAMETHASONE 4 MG/ML, 1ML IVPush SCH (10:19)
[2021-05-07] MEDS: LACTULOSE 10 GM/15 ML UDC PO SCH ×2 (10:19→19:30)
[2021-05-07] MEDS: FUROSEMIDE 20 MG TABLET PO SCH (10:19)
[2021-05-07 15:19] VITALS: BP 117/77
[2021-05-07] MEDS: CEFTRIAXONE 1,000 MG in DEXTROSE 5% 50 ML IVPB SCH (17:48)
[2021-05-07 18:58] VITALS: BP 127/82
== END 2021-05-07 20:05 | disposition home or self-care (01) | DRG 137 ==
LOC: ED 12:15 → EDIP 13:51 → 3N 14:27
PROVIDERS: ADMIT Family Medicine; ATTEND Family Medicine
DX: U07.1 COVID-19 (principal); J96.01 Acute respiratory failure with hypoxia; J12.82 Pneumonia due to coronavirus disease 2019; K70.30 Alcoholic cirrhosis of liver without ascites; F17.210 Nicotine dependence, cigarettes, uncomplicated; K72.90 Hepatic failure, unspecified without coma; N18.9 Chronic kidney disease, unspecified; Z59.0 Homelessness
CPT/HCPCS: 36415; 71045; 80053; 82728; 83615; 83880; 84145; 84484; 85025; 85379; 85651; 86140; 87400; 93005; 99285; G0378; J0696; J1100; J1644; U0005; U0003